=== PATIENT | male | born 1955 | race Caucasian/White ===

== ENCOUNTER → 2018-08-30 08:49 | Outpatient (CLI) | payer MEDICARE, OTHER, SELFPAY ==
--- NOTE | 2018-08-30 08:53 | US_ITS ---
STUDY: THYROID ULTRASOUND REASON FOR EXAM: Male, 63 years old. Thyroid enlargement TECHNIQUE: Ultrasound evaluation of the thyroid was performed with real-time and static lima-scale imaging. COMPARISON: None. FINDINGS: RIGHT LOBE: The right lobe of the thyroid gland measures 5.4 x 2.5 x 2.5 cm. There is a homogeneous echotexture. Solitary hypoechoic nodule in the right thyroid lobe measures 5 x 6 mm peripheral hypoechoic halo but no microcalcifications or vascular flow. Margins of the nodular smooth. LEFT LOBE: The left lobe of the thyroid gland measures 4.0 x 2.3 x 1.6 cm. There is a homogeneous echotexture. There are no demonstrated solid, cystic or complex lesions. ISTHMUS: The isthmus measures 5 mm. The regional lymph nodes are normal. US/Thyroid IMPRESSION: 1. Right larger than left thyromegaly. 2. Solitary 6 mm nodule in the right thyroid lobe. Follow-up ultrasound in 6-12 months recommended. Electronically Signed: Kapil Cabrera MD at 15:47 EDT , Service support ,
== END ==
PROVIDERS: Family Provider Family Medicine; PCP Family Medicine; Referring Provider Family Medicine; Visit Provider Family Medicine
DX: E01.0 Iodine-deficiency related diffuse (endemic) goiter (principal)
CPT/HCPCS: 76536

== ENCOUNTER → 2018-10-02 10:19 | Outpatient (CLI) | payer MEDICARE, OTHER, SELFPAY ==
[2018-10-02 12:00] LABS: Absolute Lymphocyte Count 1.42 X10^3/ul (0.83-4.51); Absolute Neutrophil Count 3.7 X10^3/uL (2.0-7.7); Basophil# 0.03 X10^3/uL; Basophil% 0.5 % (0-1); Eosinophil# 0.34 X10^3/uL; Eosinophils% 5.4 % (0-5); Hematocrit 54.7 % (40-54); Hemoglobin 17.3 g/dl (13.0-16.5); Lymphocyte # 1.42 X10^3/ul (4.0); Lymphocyte % 22.6 % (19-41); Mean Corp Hgb Conc 31.6 g/gl (32-36); Mean Corpuscular Hgb 29.6 pg (27.0-32.0); Mean Corpuscular Volume 93.5 fL (80-94); Mean Platelet Vol. 11.8 fl (6.2-12.0); Monocyte# 0.74 X10^3/uL; Monocyte% 11.8 % (0-10); Neutrophil # 3.74 X10^3/uL (2.7-7.7); Neutrophil % 59.5 % (47-70); Platelet Count 163 K/mm3 (150-450); RBC Distribution Width CV 14.1 % (11.6-14.6); RBC Distribution Width SD 47.9 fl (35.1-43.9); Red Blood Count 5.85 M/mm3 (4.6-6.2); White Blood Count 6.3 K/mm3 (4.4-11.0)
[2018-10-02 12:06] LABS: POSITIVE COUNT NO; POSITIVE DIFFERENTIAL NO; POSITIVE MORPHOLOGY NO
[2018-10-02 12:23] LABS: Vitamin B12 405 pg/mL (211-911); Vitamin D,25 Hydroxy 8.5 ng/mL (29.95-100.01)
[2018-10-02 12:29] LABS: ALB/GLOB Ratio 0.9 RATIO (0.9-2.4); AST(SGOT) 29 U/L (15-37); Alanine Aminotransfer ALT/SGPT 45 U/L (16-61); Albumin, Serum 3.5 g/dL (3.2-5.0); Alkaline Phosphatase 91 U/L (45-117); Anion Gap 10 (5-15); BUN 19 mg/dL (7-18); BUN/Creat Ratio 14.2 RATIO (10-20); Calcium,Total 8.9 mg/dL (8.5-10.1); Chloride 103 mmol/L (98-107); Cholesterol 133 mg/dL (200); Creatinine, Serum 1.34 mg/dL (0.70-1.30); EST Glomerular Filtration Rate 57 mL/min (>60); Est Glom Filt Rate - Afr Amer 69 mL/min (>60); Globulin 4.1 g/dL (2.2-4.2); Glucose 115 mg/dL (74-106); High Density Lipoprotein 46 mg/dL; Magnesium 1.9 mg/dL (1.6-2.6); Potassium 4.7 mmol/L (3.5-5.1); Protein, Total 7.6 g/dL (6.4-8.2); Sodium Level 141 mmol/L (136-145); T4 Free Direct 1.11 ng/dL (0.76-1.46); Thyroid Stim Hormone (TSH) 4.04 uIU/mL (0.358-3.74); Triglycerides 195 mg/dL; Uric Acid 4.3 mg/dL (3.5-7.2); Very Low Density Lipoprotein 39 mg/dL (5-40)
[2018-10-03 09:03] LABS: Ferritin 27 ng/mL (26-388); Iron 134 ug/dL (65-175); Iron Binding Capacity,Total 417 ug/dL (250-450); PERCENT IRON SATURATION 32.1 % (15.0-55.0)
[2018-10-04 08:18] LABS: Transferrin 350 mg/dL (200-370)
== END ==
PROVIDERS: Family Provider Family Medicine; PCP Family Medicine; Visit Provider Family Medicine
DX: I10 Essential (primary) hypertension (principal); D75.1 Secondary polycythemia; E01.0 Iodine-deficiency related diffuse (endemic) goiter; M10.9 Gout, unspecified; I48.91 Unspecified atrial fibrillation
CPT/HCPCS: 36415; 80053; 80061; 82306; 82607; 82728; 83036; 83540; 83550; 83735; 84439; 84443; 84466; 84550; 85025

== ENCOUNTER → 2018-10-05 13:37 | Outpatient (CLI) | payer MEDICARE, OTHER, SELFPAY ==
[2018-10-05 13:59] LABS: Absolute Lymphocyte Count 1.46 X10^3/ul (0.83-4.51); Absolute Neutrophil Count 3.8 X10^3/uL (2.0-7.7); Basophil# 0.03 X10^3/uL; Basophil% 0.5 % (0-1); Eosinophil# 0.32 X10^3/uL; Eosinophils% 5.2 % (0-5); Hematocrit 53.8 % (40-54); Hemoglobin 17.1 g/dl (13.0-16.5); Lymphocyte # 1.46 X10^3/ul (4.0); Lymphocyte % 23.8 % (19-41); Mean Corp Hgb Conc 31.8 g/gl (32-36); Mean Corpuscular Volume 94.4 fL (80-94); Mean Platelet Vol. 11.7 fl (6.2-12.0); Monocyte# 0.49 X10^3/uL; Neutrophil # 3.84 X10^3/uL (2.7-7.7); Neutrophil % 62.5 % (47-70); Platelet Count 166 K/mm3 (150-450); RBC Distribution Width CV 14.2 % (11.6-14.6); RBC Distribution Width SD 48.3 fl (35.1-43.9); White Blood Count 6.1 K/mm3 (4.4-11.0)
[2018-10-05 14:02] LABS: POSITIVE COUNT NO; POSITIVE DIFFERENTIAL NO; POSITIVE MORPHOLOGY NO
[2018-10-05 14:11] LABS: Anion Gap 10 (5-15); BUN 21 mg/dL (7-18); BUN/Creat Ratio 15.3 RATIO (10-20); Calcium,Total 9.2 mg/dL (8.5-10.1); Chloride 102 mmol/L (98-107); Creatinine, Serum 1.37 mg/dL (0.70-1.30); EST Glomerular Filtration Rate 55 mL/min (>60); Est Glom Filt Rate - Afr Amer 67 mL/min (>60); Glucose 113 mg/dL (74-106); Potassium 4.3 mmol/L (3.5-5.1); Sodium Level 139 mmol/L (136-145)
[2018-10-08 17:08] LABS: Anti-Thyroglobulin AB < 1.0 IU/mL (0.0-0.9); Thyroid Peroxidase AB 7 IU/mL (0-34)
[2018-10-08 17:09] LABS: Thyroglobulin, Serum Qt. 20.6 ng/mL (1.4-29.2)
== END ==
PROVIDERS: PCP Family Medicine; Visit Provider Family Medicine
DX: R94.4 Abnormal results of kidney function studies (principal); E03.9 Hypothyroidism, unspecified; D75.1 Secondary polycythemia
CPT/HCPCS: 36415; 80048; 84432; 85025; 86376; 86800

== ENCOUNTER → 2019-01-08 11:21 | Outpatient (CLI) | payer MEDICARE, OTHER, SELFPAY ==
[2019-01-08 14:04] LABS: Basophil# 0.03 X10^3/uL; Basophil% 0.4 % (0-1); Eosinophil# 0.47 X10^3/uL; Eosinophils% 6.6 % (0-5); Hematocrit 55.5 % (40-54); Hemoglobin 17.7 g/dl (13.0-16.5); Lymphocyte % 26.5 % (19-41); Mean Corp Hgb Conc 31.9 g/gl (32-36); Mean Corpuscular Hgb 29.6 pg (27.0-32.0); Mean Corpuscular Volume 92.8 fL (80-94); Mean Platelet Vol. 11.2 fl (6.2-12.0); Monocyte# 0.78 X10^3/uL; Monocyte% 10.9 % (0-10); Neutrophil # 3.97 X10^3/uL (2.7-7.7); Neutrophil % 55.5 % (47-70); Platelet Count 163 K/mm3 (150-450); RBC Distribution Width CV 14.8 % (11.6-14.6); RBC Distribution Width SD 49.8 fl (35.1-43.9); Red Blood Count 5.98 M/mm3 (4.6-6.2); White Blood Count 7.2 K/mm3 (4.4-11.0)
[2019-01-08 14:05] LABS: POSITIVE COUNT NO; POSITIVE DIFFERENTIAL NO; POSITIVE MORPHOLOGY NO
[2019-01-08 14:22] LABS: Hemoglobin A1c 6.2 % (4.2-6.3)
[2019-01-08 14:25] LABS: ALB/GLOB Ratio 0.8 RATIO (0.9-2.4); AST(SGOT) 26 U/L (15-37); Alanine Aminotransfer ALT/SGPT 39 U/L (16-61); Albumin, Serum 3.5 g/dL (3.2-5.0); Alkaline Phosphatase 86 U/L (45-117); Anion Gap 10 (5-15); BUN 22 mg/dL (7-18); BUN/Creat Ratio 18.3 RATIO (10-20); Calcium,Total 8.8 mg/dL (8.5-10.1); Chloride 105 mmol/L (98-107); Cholesterol 147 mg/dL (200); EST Glomerular Filtration Rate 64 mL/min (>60); Est Glom Filt Rate - Afr Amer 78 mL/min (>60); Globulin 4.2 g/dL (2.2-4.2); Glucose 115 mg/dL (74-106); High Density Lipoprotein 41 mg/dL; Potassium 4.2 mmol/L (3.5-5.1); Protein, Total 7.7 g/dL (6.4-8.2); Sodium Level 138 mmol/L (136-145); T4 Free Direct 1.07 ng/dL (0.76-1.46); Triglycerides 219 mg/dL; Very Low Density Lipoprotein 44 mg/dL (5-40)
[2019-01-08 14:28] LABS: Vitamin D,25 Hydroxy 17.6 ng/mL (29.95-100.01)
[2019-01-09 09:43] LABS: Ferritin 42 ng/mL (26-388); Iron 138 ug/dL (65-175); Iron Binding Capacity,Total 395 ug/dL (250-450); PERCENT IRON SATURATION 34.9 % (15.0-55.0)
[2019-01-10 08:17] LABS: Transferrin 302 mg/dL (200-370)
== END ==
PROVIDERS: PCP Family Medicine; Visit Provider Family Medicine
DX: R73.02 Impaired glucose tolerance (oral) (principal); E03.9 Hypothyroidism, unspecified; E78.5 Hyperlipidemia, unspecified; I10 Essential (primary) hypertension; E55.9 Vitamin D deficiency, unspecified; D75.1 Secondary polycythemia
CPT/HCPCS: 36415; 80053; 80061; 82306; 82728; 83036; 83540; 83550; 84439; 84443; 84466; 85025

== ENCOUNTER → 2019-05-10 08:04 | Outpatient (CLI) | payer MEDICARE, OTHER, SELFPAY ==
[2019-05-10 10:18] LABS: Absolute Lymphocyte Count 1.77 X10^3/ul (0.83-4.51); Absolute Neutrophil Count 3.7 X10^3/uL (2.0-7.7); Basophil# 0.03 X10^3/uL; Basophil% 0.4 % (0-1); Eosinophil# 0.49 X10^3/uL; Eosinophils% 7.3 % (0-5); Hematocrit 52.9 % (40-54); Hemoglobin 17.2 g/dl (13.0-16.5); Lymphocyte # 1.77 X10^3/ul (4.0); Lymphocyte % 26.5 % (19-41); Mean Corp Hgb Conc 32.5 g/gl (32-36); Mean Corpuscular Hgb 29.5 pg (27.0-32.0); Mean Corpuscular Volume 90.6 fL (80-94); Mean Platelet Vol. 11.1 fl (6.2-12.0); Monocyte# 0.68 X10^3/uL; Monocyte% 10.2 % (0-10); Neutrophil % 55.5 % (47-70); Platelet Count 160 K/mm3 (150-450); RBC Distribution Width CV 14.2 % (11.6-14.6); Red Blood Count 5.84 M/mm3 (4.6-6.2); White Blood Count 6.7 K/mm3 (4.4-11.0)
[2019-05-10 10:21] LABS: POSITIVE COUNT NO; POSITIVE DIFFERENTIAL NO; POSITIVE MORPHOLOGY NO
[2019-05-10 10:36] LABS: Hemoglobin A1c 6.2 % (4.2-6.3)
[2019-05-10 10:43] LABS: ALB/GLOB Ratio 0.9 RATIO (0.9-2.4); AST(SGOT) 26 U/L (15-37); Alanine Aminotransfer ALT/SGPT 37 U/L (16-61); Albumin, Serum 3.5 g/dL (3.2-5.0); Alkaline Phosphatase 83 U/L (45-117); Anion Gap 7 (5-15); BUN 17 mg/dL (7-18); BUN/Creat Ratio 14.4 RATIO (10-20); Bilirubin, Direct 0.16 mg/dL (0.00-0.30); Calcium,Total 9.4 mg/dL (8.5-10.1); Chloride 104 mmol/L (98-107); Creatinine, Serum 1.18 mg/dL (0.70-1.30); EST Glomerular Filtration Rate 66 mL/min (>60); Est Glom Filt Rate - Afr Amer 79 mL/min (>60); Glucose 116 mg/dL (74-106); Potassium 3.9 mmol/L (3.5-5.1); Protein, Total 7.5 g/dL (6.4-8.2); Sodium Level 136 mmol/L (136-145); T4 Free Direct 1.21 ng/dL (0.76-1.46); Thyroid Stim Hormone (TSH) 2.68 uIU/mL (0.358-3.74)
[2019-05-10 11:10] LABS: Vitamin D,25 Hydroxy 27.1 ng/mL (29.95-100.01)
== END ==
PROVIDERS: Family Provider Family Medicine; PCP Family Medicine; Referring Provider Family Medicine; Visit Provider Family Medicine
DX: E55.9 Vitamin D deficiency, unspecified (principal); D75.1 Secondary polycythemia; I10 Essential (primary) hypertension; E03.9 Hypothyroidism, unspecified; R73.02 Impaired glucose tolerance (oral); Z79.899 Other long term (current) drug therapy
CPT/HCPCS: 36415; 80053; 82248; 82306; 83036; 84439; 84443; 85025

== ENCOUNTER → 2019-05-14 10:05 | Outpatient (CLI) | payer MEDICARE, OTHER, SELFPAY ==
[2019-05-14 13:11] LABS: CPK Total, Creatine Kinase 86 U/L (39-308); Ferritin 23 ng/mL (26-388); Magnesium 1.9 mg/dL (1.6-2.6)
== END ==
PROVIDERS: Family Provider Family Medicine; PCP Family Medicine; Visit Provider Family Medicine
DX: R25.2 Cramp and spasm (principal)
CPT/HCPCS: 36415; 82550; 82728; 83735

== ENCOUNTER → 2019-06-20 10:11 | Outpatient (CLI) | payer MEDICARE, OTHER, SELFPAY ==
[2019-06-20 14:23] LABS: PSA,Total - Annual Screen 1.04 ng/mL (0.00-4.00)
== END ==
PROVIDERS: Family Provider Family Medicine; PCP Family Medicine; Referring Provider Family Medicine; Visit Provider Family Medicine
DX: Z12.5 Encounter for screening for malignant neoplasm of prostate (principal)
CPT/HCPCS: 36415; 84153; G0103

== ENCOUNTER → 2019-10-30 08:11 | Outpatient (CLI) | payer MEDICARE, OTHER, SELFPAY ==
[2019-10-30 10:02] LABS: Absolute Neutrophil Count 3.8 X10^3/uL (2.0-7.7); Basophil# 0.05 X10^3/uL; Basophil% 0.7 % (0-1); Eosinophils% 5.9 % (0-5); Hematocrit 55.1 % (40-54); Hemoglobin 17.5 g/dL (13.0-16.5); Lymphocyte % 26.4 % (19-41); Mean Corp Hgb Conc 31.8 g/dL (32-36); Mean Corpuscular Hgb 28.8 pg (27.0-32.0); Mean Corpuscular Volume 90.6 fL (80-94); Mean Platelet Vol. 11.1 fl (6.2-12.0); Monocyte# 0.71 X10^3/uL; Monocyte% 10.4 % (0-10); NRBC Flagged by Analyzer 0 % (0-5); Neutrophil # 3.84 X10^3/uL (2.7-7.7); Neutrophil % 56.3 % (47-70); Platelet Count 180 K/mm3 (150-450); RBC Distribution Width CV 14.2 % (11.6-14.6); RBC Distribution Width SD 46.5 fl (35.1-43.9); Red Blood Count 6.08 M/mm3 (4.6-6.2); White Blood Count 6.8 K/mm3 (4.4-11.0)
[2019-10-30 10:13] LABS: Hemoglobin A1c 6.1 % (4.2-6.3)
[2019-10-30 10:19] LABS: Vitamin D,25 Hydroxy 11.9 ng/mL (29.95-100.01)
[2019-10-30 10:40] LABS: ALB/GLOB Ratio 0.9 RATIO (0.9-2.4); AST(SGOT) 26 U/L (15-37); Alanine Aminotransfer ALT/SGPT 36 U/L (16-61); Albumin, Serum 3.5 g/dL (3.2-5.0); Alkaline Phosphatase 79 U/L (45-117); Anion Gap 10 (5-15); BUN 24 mg/dL (7-18); BUN/Creat Ratio 18.3 RATIO (10-20); Calcium,Total 8.9 mg/dL (8.5-10.1); Chloride 106 mmol/L (98-107); Cholesterol 155 mg/dL (200); Creatinine, Serum 1.31 mg/dL (0.70-1.30); EST Glomerular Filtration Rate 58 mL/min (>60); Est Glom Filt Rate - Afr Amer 70 mL/min (>60); Globulin 4.1 g/dL (2.2-4.2); Glucose 112 mg/dL (74-106); High Density Lipoprotein 40 mg/dL; Potassium 4.3 mmol/L (3.5-5.1); Protein, Total 7.6 g/dL (6.4-8.2); Sodium Level 138 mmol/L (136-145); T4 Free Direct 1.07 ng/dL (0.76-1.46); Thyroid Stim Hormone (TSH) 8.37 uIU/mL (0.358-3.74); Triglycerides 275 mg/dL; Uric Acid 4.8 mg/dL (3.5-7.2); Very Low Density Lipoprotein 55 mg/dL (5-40)
[2019-10-31 15:39] LABS: Anti-Thyroglobulin AB < 1.0 IU/mL (0.0-0.9); Thyroglobulin, Serum Qt. 11.7 ng/mL (1.4-29.2); Thyroid Peroxidase AB 7 IU/mL (0-34)
== END ==
PROVIDERS: Family Provider Family Medicine; PCP Family Medicine; Referring Provider Family Medicine; Visit Provider Family Medicine
DX: E55.9 Vitamin D deficiency, unspecified (principal); E78.5 Hyperlipidemia, unspecified; R73.02 Impaired glucose tolerance (oral); M10.9 Gout, unspecified; N18.3 Chronic kidney disease, stage 3 (moderate); Z12.5 Encounter for screening for malignant neoplasm of prostate; E03.9 Hypothyroidism, unspecified
CPT/HCPCS: 36415; 80053; 80061; 82306; 83036; 84432; 84439; 84443; 84550; 85025; 86376; 86800

== ENCOUNTER → 2019-11-14 09:08 | Outpatient (CLI) | payer MEDICARE, OTHER, SELFPAY ==
--- NOTE | 2019-11-14 09:12 | US_ITS ---
STUDY: THYROID ULTRASOUND REASON FOR EXAM: Male, 64 years old. thyroid nodule TECHNIQUE: Ultrasound evaluation of the thyroid was performed with real-time and static lima-scale imaging. COMPARISON: 08/30/2018 FINDINGS: RIGHT LOBE: The right lobe of the thyroid gland measures 5.0 x 2.1 x 2.0 cm. There is a homogeneous echotexture. No change in the 5 mm hypoechoic nodule in the right lobe consistent with an adenoma. LEFT LOBE: The left lobe of the thyroid gland measures 4.0 x 1.5 x 1.4 cm. There is a homogeneous echotexture. There are no demonstrated solid, cystic or complex lesions. ISTHMUS: The isthmus measures 3 mm thick. . The regional lymph nodes are normal. US/Thyroid IMPRESSION: No change in 5 mm adenoma the right lobe. Electronically Signed: Chung Arechiga MD at 12:08 EST Tel , Service support ,
== END ==
PROVIDERS: Family Provider Family Medicine; PCP Family Medicine; Referring Provider Family Medicine; Visit Provider Family Medicine
DX: E04.1 Nontoxic single thyroid nodule (principal)
CPT/HCPCS: 76536

== ENCOUNTER 2019-12-27 12:06 | Emergency (ER) | payer MEDICARE, OTHER, SELFPAY ==
[2019-12-27 12:08] VITALS: BP 128/82; PULSE 82; RESP 17; TEMP 36.7; O2SAT 92; BMI 39.1
--- NOTE | 2019-12-27 12:42 | ED.VIS.GEN ---
History of Present Illness Chief Complaint: Cellulitis Informant: Patient Onset: Days Context: Gradual Onset Timing: Continuous Current Severity: Moderate Maximum Severity: Moderate Narrative: The patient is a [id number] male who presents to the emergency department with left thumb infection. Patient states that he began to have some pain on Monday. He states that he has a history of gout and thought that it may be the same. He took prednisone for day which really did not seem to help it. He states when he woke this morning, he noticed there was a large area of redness on the lateral aspect of his nail base. He denies any fevers or chills. He has no history of immunosuppression. He states he was just concerned given the swelling and wanted to be evaluated. Prior similar symptoms: No Recent Illness/Hospitalization: No Past Medical History Primary Care Physician: Alexx David MD [Primary Care Provider] - Prior records reviewed: Yes Past Medical History: - - Coronary vascular disease status post pacemaker placement Surgical History: noncontributory Review of Systems General: Denies: Chills, Fever, Sweats Eyes: Denies: Visual changes - bilaterally, Diplopia ENT: Denies: Rhinorrhea, Sore throat Cardiovascular: Denies: Chest pain, Palpitations Respiratory: Denies: Dyspnea, Cough, Dyspnea on exertion Gastrointestinal: Denies: Abdominal pain, Nausea, Vomiting, Diarrhea, Melena, Hematochezia Genitourinary: Denies: Dysuria, Hematuria, Frequency Musculoskeletal: Denies: Back pain, Extremity Pain Skin: Denies: Rash, Wounds Neurological: Denies: Headache, Weakness, Numbness Physical Exam Vital Signs/Narrative: Vital Signs Temp Pulse Resp BP Pulse Ox 12/27/19 12:08 98.1 F 82 17 128/82 H 92 Inital Vital Signs reviewed: Yes General: Well nourished, Well developed, No Acute Distress Head: Normocephalic, Atraumatic Eyes: Perrl, EOMI ENT: Moist mucous membranes, No rhinorrhea Neck: Supple, Nontender Cardiovascular: Regular rate, Regular rhythm, No murmurs Respiratory: No distress, CTA bilaterally, Chest nontender Abdomen: Soft, Nontender, Nondistended, Normal bowel sounds Back: Nontender, Normal Inspection Extremities: No edema, Tenderness - Patient has tenderness over the medial aspect of the left nailbed of the first digit. There is no evidence of felon. He has normal cap refill. There is no tenderness in the tip of the finger. He does have a fluctuant area in the medial eponychial fold consistent with paronychia. Skin: Normal color, No rash Neurological: Alert, Oriented x3, Cranial nerves II-XII grossly intact, Normal Strength, Normal Sensation Psychological: Normal affect, Normal Mood Diagnostic/Tx/Re-eval - Medical Decision Making The patient has evidence of paronychia of the left thumb. There is no cellulitis or streaking. The patient was consented for incision and drainage. Digital block was done with bupivacaine under sterile conditions. Once anesthesia was achieved, a small incision was made with 11 blade over the point of maximum fluctuance. Approximately 4 cc of purulent material was able to be removed. The patient tolerated this well. His wound was cleaned and dressed. He will be placed on doxycycline. He was counseled on concerning symptoms and reasons to return. I also counseled him that if this is not improving or worsening in any way over the next 24 to 48 hours to return to the emergency department. Impression 1. Paronychia left thumb ED Disposition - Plan for ED Patient: Instructions: Paronychia Prescriptions: Doxycycline 100 mg PO BID #20 cap Prescription Printed Referrals: Alexx David MD [Primary Care Provider] -
[2019-12-27 13:59] VITALS: BP 128/82; PULSE 82; RESP 17; TEMP 36.7; O2SAT 92
[2019-12-27] MEDS: Bupivacaine Mpf 0.5% 30 ML VIAL INFILT (14:02)
== END 2019-12-27 14:29 | disposition home or self-care (01) ==
LOC: ED 13:02
PROVIDERS: Emergency Provider Emergency Medicine; PCP Family Medicine
DX: L03.012 Cellulitis of left finger (principal); M10.9 Gout, unspecified; Z95.0 Presence of cardiac pacemaker
CPT/HCPCS: 10060; 99284

== ENCOUNTER 2020-02-06 08:23 | Day surgery (SDC) | payer MEDICARE, OTHER, SELFPAY ==
[2020-01-22 14:24] VITALS: BMI 38.7
[2020-01-27 09:20] LABS: Bacteria 0 SEEN /hpf (None Seen); Mucous, Urine 0 SEEN /hpf (<or=2+); Red Blood Cells-Urine 0 SEEN /hpf (0-5); Squamous Epithelial Cells - UA 0 SEEN /hpf (0-5)
[2020-01-27 10:07] LABS: Hematocrit 53.1 % (40-54); Hemoglobin 16.9 g/dL (13.0-16.5); Mean Corp Hgb Conc 31.8 g/dL (32-36); Mean Corpuscular Hgb 28.7 pg (27.0-32.0); Mean Corpuscular Volume 90.2 fL (80-94); Mean Platelet Vol. 10.5 fl (6.2-12.0); Platelet Count 193 K/mm3 (150-450); RBC Distribution Width CV 14.2 % (11.6-14.6); RBC Distribution Width SD 46.6 fl (35.1-43.9); Red Blood Count 5.89 M/mm3 (4.6-6.2); White Blood Count 6.7 K/mm3 (4.4-11.0)
[2020-01-27 10:23] LABS: International Normalized Ratio 1.2; Prothrombin Time (Protime)PT. 14.5 SECONDS (11.7-14.9)
[2020-01-27 10:48] LABS: Anion Gap 5 (5-15); BUN 22 mg/dL (7-18); BUN/Creat Ratio 18.2 RATIO (10-20); Calcium,Total 9.1 mg/dL (8.5-10.1); Chloride 106 mmol/L (98-107); Creatinine, Serum 1.21 mg/dL (0.70-1.30); EST Glomerular Filtration Rate 64 mL/min (>60); Est Glom Filt Rate - Afr Amer 77 mL/min (>60); Glucose 129 mg/dL (74-106); Potassium 4.1 mmol/L (3.5-5.1); Sodium Level 138 mmol/L (136-145)
[2020-01-27 17:07] LABS: Color, Urine Yellow (Yellow); Glucose, Dipstick Normal (Normal); Ketone-Dipstick Negative (Negative); Leukocyte Esterase-Dipstick 25 /ul (Negative); Nitrite-Dipstick Negative (Negative); Occult Blood-Urine Negative /ul (Negative); Protein-Dipstick Negative (Negative); Specific Gravity, Urine 1.015 (1.002-1.030); Urine Bilirubin Dipstick Negative (Negative); Urine Clarity Clear (Clear); Urine Urobilinogen Normal (Normal)
[2020-01-27 17:27] LABS: White Blood Cells 0-5 SEEN /hpf (0-5)
[2020-02-05 07:23] VITALS: BMI 38.7
--- NOTE | 2020-02-06 09:03 | PCM.HP.BLA ---
History and Physical Date of Admission: 02/06/20 History of Present Illness This is a 64-year-old man with a history of CAD with remote stenting, ischemic cardiomyopathy with an EF of 15%. In 2014 he had presented with a left bundle branch block, class II-III heart failure and ejection fraction less than 30%. A biventricular implantable cardioverter defibrillator was placed with a Medtronic REFRIGERATED CARGO CLERK-D model DTPA 1 q. q. serial number [id number]. His ICD has reached [facility]. He recently transferred care to our practice. He has been following up in [place] but due to logistics he would want to follow here. In addition his defibrillator is at end-of-life. From a cardiac standpoint, patient is doing well. He does not have any chest discomfort/heaviness/tightness. His exercise tolerance is stable for his age. He does not have any worsening symptoms of shortness of breath. He denies any PND. He does not have any orthopnea. He does not have any symptoms of congestive heart failure. He does not have any palpitations that he is aware of. He does not have any lightheadedness or dizziness. He does not have any near-syncope or syncope. He does not have any lower extremity edema. He does not have any symptoms of claudication. Intake VS: see chart Allergies losartan [From Cozaar] Allergy (Verified 01/22/20 14:24) Other niacin Allergy (Verified 01/22/20 14:24) Hives sacubitril [From Entresto] Allergy (Verified 01/22/20 14:24) Other valsartan [From Entresto] Allergy (Verified 01/22/20 14:24) Other Medications Amiodarone HCl 200 mg PO DAILY 12/27/19 [History Confirmed 01/22/20] Aspirin [Aspir 81] 81 mg PO DAILY 12/27/19 [History Confirmed 01/22/20] Clopidogrel Bisulfate [Plavix] 75 mg PO DAILY 12/27/19 [History Confirmed 01/22/20] Losartan Potassium [Cozaar] 50 mg PO BID 12/27/19 [History Confirmed 01/22/20] Spironolactone 12.5 mg PO DAILY 12/27/19 [History Confirmed 01/22/20] atorvastatin 40 mg tablet 80 mg PO DAILY tab 01/22/20 [History Confirmed 01/22/20] coenzyme Q10 10 mg capsule 10 mg PO ONCE 01/22/20 [History Confirmed 01/22/20] metoprolol succinate 50 mg tablet,extended release 24 hr 50 mg PO DAILY 01/22/20 [History Confirmed 01/22/20] [facility] Medical History LBBB (left bundle branch block) (Chronic) Essential (primary) hypertension (Chronic) HLD (hyperlipidemia) (Chronic) COPD (chronic obstructive pulmonary disease) (Chronic) Coronary artery disease (Chronic) Congestive heart failure (CHF) (Chronic) Surgical History History of appendectomy (Resolved) H/O coronary angioplasty (Resolved) Biventricular ICD (implantable cardioverter-defibrillator) in place (Chronic) Family History Mother Heart disease Diabetes Father Heart disease Social History (Updated 01/22/20 @ 14:[address] Jose Schmidt MD) Smoking Status: Never smoker ROS Const Const: Negative for fatigue, weakness, headache(s), frequent falls, night sweats, daytime sleepiness or excessive sweating Eyes Eyes: Negative for blind spots, loss of peripheral vision, transient loss of vision, blurry vision or double vision ENT ENT: Negative for headache(s), dizziness, Nosebleed/epistaxis, balance problems, lip swelling or tongue swelling Cardio Chest Pain: No Palpitations: No Edema: None Muscle aches with walking: None Resp Respiratory: Negative for SOB with activity, SOB at rest, SOB orthopnea\SOB lying down, Cough or paroxysmal nocturnal dyspnea GI GI: Negative nausea, vomiting, heartburn, bright, red blood in stools or black,tarry stools : Negative for hematuria Musc Musc: Negative for muscle aches/ myalgia, muscle weakness, joint pain or balance problems Skin Skin: Negative non-healing lesions, rash or unusual bruising Neuro Neuro: Negative for dizziness, lightheadedness, orthostatic symptoms, frequent falls, headache(s), weakness, blurry vision, double vision or lack of coordination Jermain Hematologic/Lymphatic: Negative for easy bleeding or easy bruising Endo Endo: Negative for fatigue, cold intolerance, heat intolerance, excessive sweating, increased thirst/drinking or hair loss Psych Psych: Negative for anxiety or depression Allergy Allergy/Immunology: Negative for throat swelling, Negative for tongue swelling, Negative for hives, Negative for rash, Negative for lip swelling Cardiology Exam Const Appearance: cooperative, healthy appearing, no acute distress, well developed and well groomed Nutritional Appearance: average body habitus and well nourished Orientation: alert, awake and oriented x3 Head Head: normal to inspection, normocephalic and atraumatic Ears: hearing grossly normal bilaterally and external ears normal Nose: external nose normal, nares normal, nasal mucous membranes and turbinates normal, septum normal, no nasal discharge Face and Sinus: face symmetric Mouth: oral mucosae normal, tongue normal, oropharynx normal and moist mucous membranes Teeth and gingiva: dentition normal Throat: posterior oropharynx normal, tonsils normal and uvula midline Eyes General: appearance normal, both eyes and all related structures Eyelids: eyelids normal Conjunctivae: conjunctivae normal Pupils: PERRL, normal by confrontation and accommodation normal EOM: EOM intact bilaterally Neck Neck: normal visual inspection, trachea midline and no JVD JVD: +5 Carotids: normal carotid upstroke and bounding pulses Chest Chest inspection: normal inspection of the chest, symmetric chest movement and normal respiratory effort Auscultation: Bilateral: Clear to Auscultation Cardio Palpation: normal PMI Rate: regular rate Rhythm: regular rhythm Heart sounds: S1 normal, S2 normal and normal, physiologic split S2; negative rub, gallop or murmur GI GI: normal to inspection, soft, no hepatosplenomegaly and bowel sounds present Neuro General: alert, awake, oriented x3, gait normal, moves all extremities and no focal sensory deficit Skin Skin: no rashes or lesions noted Extremities Pulses: Normal: Right Femoral Pulse, Left Femoral Pulse, Right Dorsalis Pedis Pulse, Left Dorsalis Pedis Pulse, Right Posterior Tibial Pulse, Left Posterior Tibial Pulse, Right Radial Pulse, Left Radial Pulse Lower Extremity Edema: None: Bilateral Musculoskel Musculoskeletal: No joint tenderness Psych Psychological: normal affect Assessment & Plan 1. Biventricular ICD (implantable cardioverter-defibrillator) in place Z95.810 Plan He is status post biventricular ICD implantation. His battery is at end-of-life replacement index. He will undergo replacement of this today He will follow up in the office accordingly. Echocardiogram in 2017 demonstrated an EF of 15%. 2. Essential (primary) hypertension I10 Plan He does have a history of hypertension which is well-controlled on the current medical therapy he is on losartan, metoprolol, spironolactone. This will be continued without any change. 3. Coronary artery disease I25.10 Plan He does have previous coronary artery disease. He will continue with aggressive medical management. 4. HLD (hyperlipidemia) E78.5 Plan He does have a history of hyperlipidemia his most recent lipid profile demonstrating a total cholesterol 155, LDL of 60, HDL of 40, triglycerides of 275. He will continue with aggressive risk factor modification.
--- NOTE | 2020-02-06 10:51 | OP.PCM_ITS ---
Report of Operation Date of Procedure: 02/06/20 Description of Procedure: Preoperative diagnosis is device at end of life for normal battery depletion. Postoperative diagnosis same as above. After informed consent and IV antibiotics the patient was brought to the [place] catheterization laboratory and the skin over the device was prepped and draped in the usual sterile manner. Intermittent boluses of Versed, and fentanyl were used for sedation and analgesia as well as 1% subcutaneous lidocaine. An incision was made over the pre-existing device. Using blunt and Bovie dissection the pocket was opened and the device was removed. Careful attention was paid not to injure the pre-existing leads. The leads were removed from the device header and they were interrogated. There is normal lead function. Hemostasis was obtained. The pocket was flushed with antibiotic solution. The sponge and needle count were correct. The new device was brought to the field. The leads were placed in the appropriate position in the header and secured by the set screw. The leads and the device were then placed in the pocket. The pocket was closed with a deep layer of running 2-0 Vicryl, a superficial layer of running 4-0 Vicryl, skin with Steri-Strips which were covered with a rolled 4 x 4 and Tegaderm. Patient left the room with the device programmed to proper parameters and there were no complications. The device is a Medtronic BiV ICD with 2 epicardial LVleads with aconnector for epicardial bipolar pacing options. All lead parameters were tested and found to be functionally normal. Lead and device serial and model numbers are available in the chart documents provided by the device company sales representative sales manager procedure summary.
== END 2020-02-06 13:00 | disposition home or self-care (01) ==
LOC: CLSP 08:24
PROVIDERS: Internal Medicine Cardiovascular Disease; PCP Family Medicine; Referring Provider Internal Medicine Cardiovascular Disease; Visit Provider Internal Medicine Cardiovascular Disease
DX: Z45.02 Encounter for adjustment and management of automatic implantable cardiac defibrillator (principal); E78.5 Hyperlipidemia, unspecified; I11.0 Hypertensive heart disease with heart failure; I25.10 Atherosclerotic heart disease of native coronary artery without angina pectoris; I25.5 Ischemic cardiomyopathy; I50.9 Heart failure, unspecified; I44.7 Left bundle-branch block, unspecified; Z79.82 Long term (current) use of aspirin
CPT/HCPCS: 33249; 33264; 36415; 80048; 81001; 85027; 85610; 93641; 99152; 99153; J7040; J7050

== ENCOUNTER → 2020-03-06 08:10 | Outpatient (CLI) | payer MEDICARE, OTHER, SELFPAY ==
[2020-02-05 07:23] VITALS: BMI 38.7
[2020-03-06 09:55] LABS: Absolute Lymphocyte Count 1.84 X10^3/uL (0.83-4.51); Absolute Neutrophil Count 3.2 X10^3/uL (2.0-7.7); Basophil# 0.05 X10^3/uL; Basophil% 0.8 % (0-1); Eosinophil# 0.45 X10^3/uL; Eosinophils% 7.3 % (0-5); Hematocrit 53.2 % (40-54); Hemoglobin 17.1 g/dL (13.0-16.5); Lymphocyte # 1.84 X10^3/ul (4.0); Mean Corp Hgb Conc 32.1 g/dL (32-36); Mean Corpuscular Volume 90.3 fL (80-94); Mean Platelet Vol. 10.8 fl (6.2-12.0); Monocyte# 0.55 X10^3/uL; NRBC Flagged by Analyzer 0 % (0-5); Neutrophil # 3.23 X10^3/uL (2.7-7.7); Neutrophil % 52.7 % (47-70); Platelet Count 182 K/mm3 (150-450); RBC Distribution Width SD 46.5 fl (35.1-43.9); Red Blood Count 5.89 M/mm3 (4.6-6.2); White Blood Count 6.1 K/mm3 (4.4-11.0)
[2020-03-06 10:14] LABS: ALB/GLOB Ratio 0.9 RATIO (0.9-2.4); AST(SGOT) 22 U/L (15-37); Alanine Aminotransfer ALT/SGPT 31 U/L (16-61); Albumin, Serum 3.4 g/dL (3.2-5.0); Alkaline Phosphatase 81 U/L (45-117); Anion Gap 8 (5-15); BUN 19 mg/dL (7-18); BUN/Creat Ratio 16.5 RATIO (10-20); Calcium,Total 8.8 mg/dL (8.5-10.1); Chloride 106 mmol/L (98-107); Cholesterol 158 mg/dL (200); Creatinine, Serum 1.15 mg/dL (0.70-1.30); EST Glomerular Filtration Rate 67 mL/min (>60); Est Glom Filt Rate - Afr Amer 82 mL/min (>60); Ferritin 35 ng/mL (26-388); Globulin 3.8 g/dL (2.2-4.2); Glucose 135 mg/dL (74-106); High Density Lipoprotein 45 mg/dL; Iron 117 ug/dL (65-175); Iron Binding Capacity,Total 404 ug/dL (250-450); Potassium 4.1 mmol/L (3.5-5.1); Protein, Total 7.2 g/dL (6.4-8.2); Sodium Level 138 mmol/L (136-145); Triglycerides 179 mg/dL; Very Low Density Lipoprotein 36 mg/dL (5-40)
[2020-03-06 10:27] LABS: Iron 118 ug/dL (65-175); Iron Binding Capacity,Total 410 ug/dL (250-450); PERCENT IRON SATURATION 28.8 % (15.0-55.0); T4 Free Direct 0.99 ng/dL (0.76-1.46); Thyroid Stim Hormone (TSH) 7.04 uIU/mL (0.358-3.74)
[2020-03-06 10:31] LABS: Hemoglobin A1c 6.1 % (4.2-6.3); Vitamin D,25 Hydroxy 37.2 ng/mL
[2020-03-07 08:30] LABS: Transferrin 281 mg/dL (177-329)
== END ==
PROVIDERS: PCP Family Medicine; Referring Provider Family Medicine; Visit Provider Family Medicine
DX: E03.9 Hypothyroidism, unspecified (principal); I10 Essential (primary) hypertension; R73.02 Impaired glucose tolerance (oral); N18.3 Chronic kidney disease, stage 3 (moderate); E55.9 Vitamin D deficiency, unspecified; E78.5 Hyperlipidemia, unspecified; D75.1 Secondary polycythemia; R79.0 Abnormal level of blood mineral
CPT/HCPCS: 36415; 80053; 80061; 82306; 82728; 83036; 83540; 83550; 84439; 84443; 84466; 85025

== ENCOUNTER → 2020-07-14 08:05 | Outpatient (CLI) | payer MEDICARE, OTHER, SELFPAY ==
[2020-02-05 07:23] VITALS: BMI 38.7
[2020-07-14 10:43] LABS: Absolute Neutrophil Count 3.9 X10^3/uL (2.0-7.7); Basophil# 0.05 X10^3/uL; Basophil% 0.7 % (0-1); Eosinophil# 0.45 X10^3/uL; Eosinophils% 6.4 % (0-5); Hematocrit 54.3 % (40-54); Hemoglobin 17.2 g/dL (13.0-16.5); Lymphocyte % 28.6 % (19-41); Mean Corp Hgb Conc 31.7 g/dL (32-36); Mean Corpuscular Hgb 29.1 pg (27.0-32.0); Mean Corpuscular Volume 91.9 fL (80-94); Mean Platelet Vol. 11.1 fl (6.2-12.0); Monocyte# 0.62 X10^3/uL; Monocyte% 8.9 % (0-10); NRBC Flagged by Analyzer 0 % (0-5); Neutrophil # 3.86 X10^3/uL (2.7-7.7); Neutrophil % 55.3 % (47-70); Platelet Count 203 K/mm3 (150-450); Red Blood Count 5.91 M/mm3 (4.6-6.2)
[2020-07-14 10:52] LABS: Vitamin D,25 Hydroxy 37.5 ng/mL
[2020-07-14 11:06] LABS: ALB/GLOB Ratio 0.9 RATIO (0.9-2.4); AST(SGOT) 21 U/L (15-37); Alanine Aminotransfer ALT/SGPT 27 U/L (16-61); Albumin, Serum 3.5 g/dL (3.2-5.0); Alkaline Phosphatase 77 U/L (45-117); Anion Gap 5 (5-15); BUN 19 mg/dL (7-18); BUN/Creat Ratio 15.8 RATIO (10-20); Calcium,Total 8.9 mg/dL (8.5-10.1); Chloride 104 mmol/L (98-107); Cholesterol 158 mg/dL (200); EST Glomerular Filtration Rate 64 mL/min (>60); Est Glom Filt Rate - Afr Amer 78 mL/min (>60); Globulin 4.1 g/dL (2.2-4.2); Glucose 120 mg/dL (74-106); High Density Lipoprotein 42 mg/dL; Protein, Total 7.6 g/dL (6.4-8.2); Sodium Level 137 mmol/L (136-145); T4 Free Direct 0.96 ng/dL (0.76-1.46); Thyroid Stim Hormone (TSH) 8.17 uIU/mL (0.358-3.74); Triglycerides 238 mg/dL; Very Low Density Lipoprotein 48 mg/dL (5-40)
[2020-07-14 11:10] LABS: Hemoglobin A1c 6.1 % (3.8-5.6)
== END ==
PROVIDERS: PCP Family Medicine; Referring Provider Family Medicine; Visit Provider Family Medicine
DX: E03.9 Hypothyroidism, unspecified (principal); D75.1 Secondary polycythemia; I10 Essential (primary) hypertension; R73.02 Impaired glucose tolerance (oral); E78.5 Hyperlipidemia, unspecified; E55.9 Vitamin D deficiency, unspecified
CPT/HCPCS: 36415; 80053; 80061; 82306; 82570; 83036; 84156; 84439; 84443; 85025

== ENCOUNTER → 2020-11-24 08:01 | Outpatient (CLI) | payer MEDICARE, OTHER, SELFPAY ==
[2020-07-24 08:35] VITALS: BMI 38.0
[2020-11-24 10:19] LABS: Absolute Lymphocyte Count 2.15 X10^3/uL (0.83-4.51); Absolute Neutrophil Count 3.6 X10^3/uL (2.0-7.7); Basophil# 0.06 X10^3/uL; Basophil% 0.9 % (0-1); Eosinophil# 0.54 X10^3/uL; Eosinophils% 7.7 % (0-5); Hematocrit 53.4 % (40-54); Hemoglobin 16.9 g/dL (13.0-16.5); Lymphocyte # 2.15 X10^3/ul (4.0); Lymphocyte % 30.8 % (19-41); Mean Corp Hgb Conc 31.6 g/dL (32-36); Mean Corpuscular Hgb 28.5 pg (27.0-32.0); Mean Corpuscular Volume 89.9 fL (80-94); Mean Platelet Vol. 11.2 fl (6.2-12.0); Monocyte# 0.66 X10^3/uL; Monocyte% 9.5 % (0-10); NRBC Flagged by Analyzer 0 % (0-5); Neutrophil # 3.55 X10^3/uL (2.7-7.7); Platelet Count 182 K/mm3 (150-450); RBC Distribution Width CV 13.4 % (11.6-14.6); RBC Distribution Width SD 44.6 fl (35.1-43.9); Red Blood Count 5.94 M/mm3 (4.6-6.2)
[2020-11-24 10:32] LABS: Vitamin D,25 Hydroxy 19.4 ng/mL
[2020-11-24 10:34] LABS: Hemoglobin A1c 6.1 % (3.8-5.6)
[2020-11-24 10:35] LABS: AST(SGOT) 15 U/L (15-37); Alanine Aminotransfer ALT/SGPT 29 U/L (16-61); Albumin, Serum 3.6 g/dL (3.2-5.0); Alkaline Phosphatase 81 U/L (45-117); Anion Gap 10 (5-15); BUN 19 mg/dL (7-18); BUN/Creat Ratio 17.4 RATIO (10-20); Chloride 105 mmol/L (98-107); Cholesterol 141 mg/dL (200); Creatinine, Serum 1.09 mg/dL (0.70-1.30); EST Glomerular Filtration Rate 72 mL/min (>60); Est Glom Filt Rate - Afr Amer 87 mL/min (>60); Ferritin 44 ng/mL (26-388); Globulin 3.7 g/dL (2.2-4.2); Glucose 140 mg/dL (74-106); High Density Lipoprotein 36 mg/dL; Iron 169 ug/dL (65-175); Iron Binding Capacity,Total 368 ug/dL (250-450); Potassium 3.9 mmol/L (3.5-5.1); Protein, Total 7.3 g/dL (6.4-8.2); Sodium Level 138 mmol/L (136-145); T4 Free Direct 0.96 ng/dL (0.76-1.46); Triglycerides 258 mg/dL; Very Low Density Lipoprotein 52 mg/dL (5-40)
[2020-11-25 08:36] LABS: Transferrin 285 mg/dL (177-329)
== END ==
PROVIDERS: PCP Family Medicine; Referring Provider Family Medicine; Visit Provider Family Medicine
DX: E78.5 Hyperlipidemia, unspecified (principal); R73.02 Impaired glucose tolerance (oral); E55.9 Vitamin D deficiency, unspecified; D75.1 Secondary polycythemia; N18.30 Chronic kidney disease, stage 3 unspecified; E03.9 Hypothyroidism, unspecified
CPT/HCPCS: 36415; 80053; 80061; 82306; 82728; 83036; 83540; 83550; 84439; 84443; 84466; 85025

== ENCOUNTER → 2020-12-03 08:46 | Outpatient (CLI) | payer MEDICARE, OTHER, SELFPAY ==
[2020-07-24 08:35] VITALS: BMI 38.0
--- NOTE | 2020-12-03 08:49 | US_ITS ---
STUDY: THYROID ULTRASOUND REASON FOR EXAM: Male, 65 years old. NODULE TECHNIQUE: Ultrasound evaluation of the thyroid was performed with real-time and static lima-scale imaging. COMPARISON: Comparison is made with prior examination dated 11/14/2019 and 08/30/2018. FINDINGS: RIGHT LOBE: The right lobe of the thyroid gland measures 4.8 cm x 2.2 cm x 1.9 cm. There is a homogeneous echotexture. There is a 6 mm x 7 mm x 5 mm hypoechoic solid nodule in the midportion of the right lobe. This is unchanged. LEFT LOBE: The left lobe of the thyroid gland measures 3.5 cm x 1.6 cm x 1.4 cm. There is a homogeneous echotexture. There are no demonstrated solid, cystic or complex lesions. ISTHMUS: The isthmus measures 4 mm. The regional lymph nodes are normal. US/Thyroid IMPRESSION: Stable 6 mm x 7 mm x 5 mm hypoechoic solid nodule in the midportion of the right lobe of the thyroid. Electronically Signed: Gopal Aguilar, at 11:05 EST , Service support ,
== END ==
PROVIDERS: PCP Family Medicine; Referring Provider Family Medicine; Visit Provider Family Medicine
DX: E04.1 Nontoxic single thyroid nodule (principal)
CPT/HCPCS: 76536

== ENCOUNTER 2021-01-28 10:06 | Outpatient (RCR) | payer MEDICARE, OTHER, SELFPAY ==
[2020-07-24 08:35] VITALS: BMI 38.0
[2021-01-28] MEDS: COVID-19 VACC, MRNA(PFIZER)/PF 30 MCG/0.3 ML SYRINGE IM (07:58)
[2021-02-18] MEDS: COVID-19 VACC, MRNA(PFIZER)/PF 30 MCG/0.3 ML SYRINGE IM (08:14)
== END 2021-04-27 23:59 ==
LOC: IMMUN 10:06
PROVIDERS: PCP Family Medicine; Visit Provider Family Medicine
DX: Z23 Encounter for immunization (principal)
CPT/HCPCS: 0001A; 0002A; 91300

== ENCOUNTER → 2021-03-03 12:53 | Outpatient (CLI) | payer MEDICARE, OTHER, SELFPAY ==
[2021-02-23 08:32] VITALS: BMI 38.2
--- NOTE | 2021-03-03 12:55 | ECHOCS_ITS ---
Version 2 Reason For Study: DYSPNEA/SOB Procedure This was a 2D Doppler, Color Flow transthoracic echocardiogram. The study was technically difficult. Exam performed in department. Left Ventricle Severely dilated left ventricle. The estimated ejection fraction is 25 %. Severe global left ventricular systolic dysfunction. Stage 1 diastolic dysfunction. There is severe global hypokinesis of the left ventricle. Right Ventricle Normal RV size. ICD or pacer leads identified within the right ventricle. Normal systolic function. Atria The left atrium is moderately enlarged. Normal right atrium. Mitral Valve Normal mitral valve. Tricuspid Valve Normal tricuspid valve. Mild (1+) tricuspid valve insufficiency. Pulmonary artery systolic pressure is 36 mmHg. Aortic Valve Trisinus/trileaflet aortic valve. Pulmonic Valve The pulmonic valve is not well visualized. Great Vessels Normal aortic root. The pulmonary artery is normal size. Normal inferior vena cava. Pericardium/Pleural No pericardial effusion. Medication 22 gauge I.V. with prn adaptor inserted into left arm. Diluted definity 6ml given slow IV push to enhance endocardial definition. MMode/2D Measurements & Calculations LVIDd: 8.3 cm IVSd: 0.98 cm Ao root diam: 3.3 cm LVIDs: 7.0 cm LVPWd: 0.96 cm RVDd: 3.5 cm FS: 16.1 % LAV(MOD-sp4): 87.6 ml LVAd ap4: 47.5 cm2 SV(MOD-sp4): 66.4 ml EDV(MOD-sp4): 207.7 ml EDV(sp4-el): 211.2 ml LVAs ap4: 36.2 cm2 ESV(MOD-sp4): 141.3 ml ESV(sp4-el): 144.5 ml EF(MOD-sp4): 32.0 % EF(sp4-el): 31.6 % SV(sp4-el): 66.6 ml LA A4 area: 26.0 cm2 LA dimension(2D): 4.6 cm RA A4 area: 13.0 cm2 Time Measurements MV dec time: 0.12 sec Doppler Measurements & Calculations MV E max robert: 58.3 cm/sec Lat Peak E' Robert: 9.4 cm/sec Med Peak E' Robert: 5.1 cm/sec MV A max robert: 74.7 cm/sec E/E' lat: 6.2 E/E' med: 11.5 MV E/A: 0.78 Ao V2 max: 106.2 cm/sec LV V1 max: 70.6 cm/sec PA V2 max: 81.6 cm/sec Ao max P.6 mmHg LV V1 max P.1 mmHg PI end-d robert: 166.2 cm/sec TR max robert: 280.6 cm/sec PI dec slope: 184.9 cm/sec2 TR max P.5 mmHg ECHO/Echo Complete W/ Contrast Interpretation Summary Severely dilated left ventricle. The estimated ejection fraction is 25 %. Severe global left ventricular systolic dysfunction. The left atrium is moderately enlarged. Stage 1 diastolic dysfunction. ICD or pacer leads identified within the right ventricle. Contrast injection was performed. Ordering Physician: Jose Schmidt Referring Physician: YESENIA MIXON Performed By: Adriana Osborne RDCS
== END ==
PROVIDERS: PCP Family Medicine; Referring Provider Internal Medicine Cardiovascular Disease; Visit Provider Internal Medicine Cardiovascular Disease
DX: R06.00 Dyspnea, unspecified (principal); R06.02 Shortness of breath
CPT/HCPCS: 93306; Q9957; A4216; C8929

== ENCOUNTER → 2021-03-18 08:04 | Outpatient (CLI) | payer MEDICARE, OTHER, SELFPAY ==
[2021-02-23 08:32] VITALS: BMI 38.2
[2021-03-18 09:53] LABS: Absolute Lymphocyte Count 2.05 X10^3/uL (0.83-4.51); Absolute Neutrophil Count 3.4 X10^3/uL (2.0-7.7); Basophil# 0.05 X10^3/uL; Basophil% 0.8 % (0-1); Eosinophil# 0.41 X10^3/uL; Eosinophils% 6.2 % (0-5); Hematocrit 54.3 % (40-54); Hemoglobin 16.8 g/dL (13.0-16.5); Lymphocyte # 2.05 X10^3/ul (0.83-4.51); Lymphocyte % 30.9 % (19-41); Mean Corp Hgb Conc 30.9 g/dL (32-36); Mean Corpuscular Hgb 28.2 pg (27.0-32.0); Mean Corpuscular Volume 91.3 fL (80-94); Monocyte# 0.68 X10^3/uL; Monocyte% 10.2 % (0-10); NRBC Flagged by Analyzer 0 % (0-5); Neutrophil # 3.44 X10^3/uL (2.7-7.7); Neutrophil % 51.7 % (47-70); Platelet Count 186 K/mm3 (150-450); RBC Distribution Width CV 13.7 % (11.6-14.6); RBC Distribution Width SD 46.1 fl (35.1-43.9); Red Blood Count 5.95 M/mm3 (4.6-6.2); White Blood Count 6.6 K/mm3 (4.4-11.0)
[2021-03-18 10:12] LABS: ALB/GLOB Ratio 0.9 RATIO (0.9-2.4); AST(SGOT) 15 U/L (15-37); Alanine Aminotransfer ALT/SGPT 29 U/L (16-61); Albumin, Serum 3.5 g/dL (3.2-5.0); Alkaline Phosphatase 68 U/L (45-117); Anion Gap 5 (5-15); BUN 19 mg/dL (7-18); BUN/Creat Ratio 17.9 RATIO (10-20); Chloride 108 mmol/L (98-107); Cholesterol 230 mg/dL (200); Creatinine, Serum 1.06 mg/dL (0.70-1.30); EST Glomerular Filtration Rate 74 mL/min (>60); Est Glom Filt Rate - Afr Amer 89 mL/min (>60); Globulin 3.7 g/dL (2.2-4.2); Glucose 124 mg/dL (74-106); High Density Lipoprotein 38 mg/dL; Magnesium 1.9 mg/dL (1.6-2.6); Potassium 4.2 mmol/L (3.5-5.1); Protein, Total 7.2 g/dL (6.4-8.2); Sodium Level 138 mmol/L (136-145); T4 Free Direct 0.95 ng/dL (0.76-1.46); Thyroid Stim Hormone (TSH) 6.81 uIU/mL (0.358-3.74); Triglycerides 290 mg/dL; Uric Acid 5.6 mg/dL (3.5-7.2); Very Low Density Lipoprotein 58 mg/dL (5-40)
[2021-03-18 10:19] LABS: Hemoglobin A1c 5.8 % (3.8-5.6); Vitamin D,25 Hydroxy 27.1 ng/mL
== END ==
PROVIDERS: PCP Family Medicine; Referring Provider Family Medicine; Visit Provider Family Medicine
DX: E55.9 Vitamin D deficiency, unspecified (principal); I10 Essential (primary) hypertension; R73.02 Impaired glucose tolerance (oral); E78.5 Hyperlipidemia, unspecified; E03.9 Hypothyroidism, unspecified; I47.2 Ventricular tachycardia; M10.9 Gout, unspecified
CPT/HCPCS: 36415; 80053; 80061; 82306; 83036; 83735; 84439; 84443; 84550; 85025

== ENCOUNTER → 2021-06-17 08:03 | Outpatient (CLI) | payer MEDICARE, OTHER, SELFPAY ==
[2021-02-23 08:32] VITALS: BMI 38.2
[2021-06-17 10:17] LABS: Absolute Lymphocyte Count 2.31 X10^3/uL (0.83-4.51); Absolute Neutrophil Count 3.2 X10^3/uL (2.0-7.7); Basophil# 0.05 X10^3/uL; Basophil% 0.8 % (0-1); Eosinophil# 0.47 X10^3/uL; Eosinophils% 7.1 % (0-5); Hematocrit 54.6 % (40-54); Hemoglobin 17.2 g/dL (13.0-16.5); Lymphocyte # 2.31 X10^3/ul (0.83-4.51); Lymphocyte % 34.7 % (19-41); Mean Corp Hgb Conc 31.5 g/dL (32-36); Mean Corpuscular Hgb 28.6 pg (27.0-32.0); Mean Corpuscular Volume 90.8 fL (80-94); Mean Platelet Vol. 11.1 fl (6.2-12.0); Monocyte# 0.62 X10^3/uL; Monocyte% 9.3 % (0-10); NRBC Flagged by Analyzer 0 % (0-5); Neutrophil # 3.19 X10^3/uL (2.7-7.7); Neutrophil % 47.9 % (47-70); Platelet Count 199 K/mm3 (150-450); RBC Distribution Width CV 13.8 % (11.6-14.6); Red Blood Count 6.01 M/mm3 (4.6-6.2); White Blood Count 6.7 K/mm3 (4.4-11.0)
[2021-06-17 10:39] LABS: Hemoglobin A1c 5.7 % (3.8-5.6)
[2021-06-17 10:41] LABS: Vitamin D,25 Hydroxy 23.9 ng/mL
[2021-06-17 10:51] LABS: ALB/GLOB Ratio 0.9 RATIO (0.9-2.4); AST(SGOT) 20 U/L (15-37); Alanine Aminotransfer ALT/SGPT 30 U/L (16-61); Albumin, Serum 3.5 g/dL (3.2-5.0); Alkaline Phosphatase 61 U/L (45-117); Anion Gap 6 (5-15); BUN 20 mg/dL (7-18); BUN/Creat Ratio 21.7 RATIO (10-20); Calcium,Total 8.8 mg/dL (8.5-10.1); Chloride 105 mmol/L (98-107); Cholesterol 222 mg/dL (200); Creatinine, Serum 0.92 mg/dL (0.70-1.30); EST Glomerular Filtration Rate 87 mL/min (>60); Est Glom Filt Rate - Afr Amer 105 mL/min (>60); Globulin 3.9 g/dL (2.2-4.2); Glucose 107 mg/dL (74-106); High Density Lipoprotein 35 mg/dL; Potassium 4.4 mmol/L (3.5-5.1); Protein, Total 7.4 g/dL (6.4-8.2); Sodium Level 135 mmol/L (136-145); T4 Free Direct 0.94 ng/dL (0.76-1.46); Triglycerides 284 mg/dL; Very Low Density Lipoprotein 57 mg/dL (5-40)
[2021-06-18 20:19] LABS: Anti-Thyroglobulin AB < 1.0 IU/mL (0.0-0.9); Thyroglobulin, Serum Qt. 12.5 ng/mL (1.4-29.2); Thyroid Peroxidase AB < 8 IU/mL (0-34)
== END ==
PROVIDERS: PCP Family Medicine; Referring Provider Family Medicine; Visit Provider Family Medicine
DX: E55.9 Vitamin D deficiency, unspecified (principal); R73.02 Impaired glucose tolerance (oral); E03.8 Other specified hypothyroidism; I10 Essential (primary) hypertension; E78.5 Hyperlipidemia, unspecified
CPT/HCPCS: 36415; 80053; 80061; 82306; 83036; 84432; 84439; 84443; 85025; 86376; 86800

== ENCOUNTER → 2021-10-25 08:12 | Outpatient (CLI) | payer MEDICARE, OTHER, SELFPAY ==
[2021-10-25 10:01] LABS: Absolute Lymphocyte Count 2.04 X10^3/uL (0.83-4.51); Absolute Neutrophil Count 3.6 X10^3/uL (2.0-7.7); Basophil# 0.06 X10^3/uL; Basophil% 0.9 % (0-1); Eosinophil# 0.45 X10^3/uL; Eosinophils% 6.6 % (0-5); Hematocrit 54.8 % (40-54); Hemoglobin 17.3 g/dL (13.0-16.5); Lymphocyte # 2.04 X10^3/ul (0.83-4.51); Lymphocyte % 29.7 % (19-41); Mean Corp Hgb Conc 31.6 g/dL (32-36); Mean Corpuscular Hgb 28.8 pg (27.0-32.0); Mean Corpuscular Volume 91.2 fL (80-94); Monocyte# 0.68 X10^3/uL; Monocyte% 9.9 % (0-10); NRBC Flagged by Analyzer 0 % (0-5); Neutrophil # 3.61 X10^3/uL (2.7-7.7); Neutrophil % 52.6 % (47-70); Platelet Count 195 K/mm3 (150-450); RBC Distribution Width CV 14.1 % (11.6-14.6); RBC Distribution Width SD 46.7 fl (35.1-43.9); Red Blood Count 6.01 M/mm3 (4.6-6.2); White Blood Count 6.9 K/mm3 (4.4-11.0)
[2021-10-25 10:20] LABS: Hemoglobin A1c 5.7 % (3.8-5.6)
[2021-10-25 10:30] LABS: ALB/GLOB Ratio 0.8 RATIO (0.9-2.4); AST(SGOT) 13 U/L (15-37); Alanine Aminotransfer ALT/SGPT 28 U/L (16-61); Albumin, Serum 3.5 g/dL (3.2-5.0); Alkaline Phosphatase 73 U/L (45-117); Anion Gap 8 (5-15); BUN 18 mg/dL (7-18); BUN/Creat Ratio 16.8 RATIO (10-20); Chloride 102 mmol/L (98-107); Cholesterol 166 mg/dL (200); Creatinine, Serum 1.07 mg/dL (0.70-1.30); EST Glomerular Filtration Rate 73 mL/min (>60); Est Glom Filt Rate - Afr Amer 88 mL/min (>60); Ferritin 42 ng/mL (26-388); Globulin 4.2 g/dL (2.2-4.2); Glucose 136 mg/dL (74-106); High Density Lipoprotein 37 mg/dL; Iron 192 ug/dL (65-175); Iron Binding Capacity,Total 488 ug/dL (250-450); Potassium 4.3 mmol/L (3.5-5.1); Protein, Total 7.7 g/dL (6.4-8.2); Sodium Level 137 mmol/L (136-145); T4 Free Direct 0.92 ng/dL (0.76-1.46); Triglycerides 242 mg/dL; Very Low Density Lipoprotein 48 mg/dL (5-40)
[2021-10-25 10:52] LABS: Vitamin D,25 Hydroxy 24.2 ng/mL
[2021-10-26 14:20] LABS: Transferrin 298 mg/dL (177-329)
== END ==
PROVIDERS: PCP Family Medicine; Referring Provider Family Medicine; Visit Provider Family Medicine
DX: D75.1 Secondary polycythemia (principal); M10.9 Gout, unspecified; R73.02 Impaired glucose tolerance (oral); E78.5 Hyperlipidemia, unspecified; E55.9 Vitamin D deficiency, unspecified; E03.9 Hypothyroidism, unspecified; I47.2 Ventricular tachycardia
CPT/HCPCS: 36415; 80053; 80061; 82306; 82728; 83036; 83540; 83550; 84439; 84443; 84466; 84550; 85025

== ENCOUNTER 2022-02-18 08:00 | Outpatient (CLI) | payer MEDICARE, OTHER, SELFPAY ==
[2022-02-18 17:53] LABS: Hemoglobin 17.3 g/dL (13.0-16.5); Mean Corp Hgb Conc 31.1 g/dL (32-36); Mean Corpuscular Hgb 29.5 pg (27.0-32.0); Mean Corpuscular Volume 95.1 fL (80-94); Mean Platelet Vol. 11.3 fl (6.2-12.0); Platelet Count 182 K/mm3 (150-450); RBC Distribution Width CV 14.2 % (11.6-14.6); RBC Distribution Width SD 49.2 fl (35.1-43.9); Red Blood Count 5.86 M/mm3 (4.6-6.2); White Blood Count 7.1 K/mm3 (4.4-11.0)
[2022-02-18 18:01] LABS: Hematocrit 55.7 % (40-54); Scan Indicated on CBC? Y/N NO
[2022-02-18 18:14] LABS: ALB/GLOB Ratio 1.1 RATIO (0.9-2.4); AST(SGOT) 19 U/L (15-37); Alanine Aminotransfer ALT/SGPT 31 U/L (16-61); Albumin, Serum 3.8 g/dL (3.2-5.0); Alkaline Phosphatase 78 U/L (45-117); Anion Gap 6 (5-15); BUN 18 mg/dL (7-18); BUN/Creat Ratio 18.4 RATIO (10-20); Calcium,Total 9.4 mg/dL (8.5-10.1); Chloride 105 mmol/L (98-107); Cholesterol 178 mg/dL (200); Creatinine, Serum 0.98 mg/dL (0.70-1.30); EST Glomerular Filtration Rate 81 mL/min (>60); Est Glom Filt Rate - Afr Amer 98 mL/min (>60); Globulin 3.4 g/dL (2.2-4.2); Glucose 131 mg/dL (74-106); High Density Lipoprotein 38 mg/dL; Potassium 4.2 mmol/L (3.5-5.1); Protein, Total 7.2 g/dL (6.4-8.2); Sodium Level 139 mmol/L (136-145); Triglycerides 282 mg/dL; Uric Acid 4.9 mg/dL (3.5-7.2); Very Low Density Lipoprotein 56 mg/dL (5-40)
== END 2022-02-18 23:59 | disposition home or self-care (01) ==
LOC: MFPLAB 08:02
PROVIDERS: PCP Family Medicine; Referring Provider Family Medicine; Visit Provider Family Medicine
DX: I10 Essential (primary) hypertension (principal); E78.5 Hyperlipidemia, unspecified
CPT/HCPCS: 36415; 80053; 80061; 83735; 84550; 85027

== ENCOUNTER 2022-02-23 09:12 | Outpatient (CLI) | payer MEDICARE, OTHER, SELFPAY ==
[2022-02-23 10:28] LABS: Hemoglobin A1c 6.1 % (3.8-5.6)
[2022-02-23 10:59] LABS: PSA,Total - Annual Screen 0.97 ng/mL (0.00-4.00)
== END 2022-02-23 23:59 | disposition home or self-care (01) ==
LOC: MFPLAB 09:14
PROVIDERS: PCP Family Medicine; Referring Provider Family Medicine; Visit Provider Family Medicine
DX: R73.09 Other abnormal glucose (principal); Z12.5 Encounter for screening for malignant neoplasm of prostate
CPT/HCPCS: 36415; 83036; 84153; G0103

== ENCOUNTER → 2022-06-16 | Outpatient (CLI) | payer MEDICARE, OTHER, SELFPAY ==
[2022-06-16 10:25] LABS: Absolute Lymphocyte Count 2.01 X10^3/uL (0.83-4.51); Absolute Neutrophil Count 3.7 X10^3/uL (2.0-7.7); Basophil# 0.03 X10^3/uL; Basophil% 0.4 % (0-1); Eosinophil# 0.37 X10^3/uL; Eosinophils% 5.4 % (0-5); Hematocrit 51.7 % (40-54); Lymphocyte # 2.01 X10^3/ul (0.83-4.51); Lymphocyte % 29.6 % (19-41); Mean Corp Hgb Conc 32.9 g/dL (32-36); Mean Corpuscular Hgb 29.7 pg (27.0-32.0); Mean Corpuscular Volume 90.4 fL (80-94); Mean Platelet Vol. 10.8 fl (6.2-12.0); Monocyte# 0.66 X10^3/uL; Monocyte% 9.7 % (0-10); NRBC Flagged by Analyzer 0 % (0-5); Neutrophil % 54.6 % (47-70); Platelet Count 173 K/mm3 (150-450); RBC Distribution Width CV 13.7 % (11.6-14.6); RBC Distribution Width SD 44.8 fl (35.1-43.9); Red Blood Count 5.72 M/mm3 (4.6-6.2); White Blood Count 6.8 K/mm3 (4.4-11.0)
[2022-06-16 10:51] LABS: Vitamin D,25 Hydroxy 33.6 ng/mL
[2022-06-16 11:10] LABS: ALB/GLOB Ratio 0.9 RATIO (0.9-2.4); AST(SGOT) 22 U/L (15-37); Alanine Aminotransfer ALT/SGPT 32 U/L (16-61); Albumin, Serum 3.6 g/dL (3.2-5.0); Alkaline Phosphatase 67 U/L (45-117); Anion Gap 8 (5-15); BUN 22 mg/dL (7-18); BUN/Creat Ratio 21.8 RATIO (10-20); Calcium,Total 9.1 mg/dL (8.5-10.1); Chloride 105 mmol/L (98-107); Cholesterol 159 mg/dL (200); Creatinine, Serum 1.01 mg/dL (0.70-1.30); EST Glomerular Filtration Rate 78 mL/min (>60); Est Glom Filt Rate - Afr Amer 94 mL/min (>60); Globulin 3.9 g/dL (2.2-4.2); Glucose 120 mg/dL (74-106); High Density Lipoprotein 38 mg/dL; Potassium 4.4 mmol/L (3.5-5.1); Protein, Total 7.5 g/dL (6.4-8.2); Sodium Level 135 mmol/L (136-145); T4 Free Direct 0.97 ng/dL (0.76-1.46); Thyroid Stim Hormone (TSH) 6.21 uIU/mL (0.358-3.74); Triglycerides 228 mg/dL; Uric Acid 5.2 mg/dL (3.5-7.2); Very Low Density Lipoprotein 46 mg/dL (5-40)
[2022-06-16 13:51] LABS: Hemoglobin A1c 5.8 % (3.8-5.6)
== END | disposition home or self-care (01) ==
LOC: MFPLAB 08:11
PROVIDERS: PCP Family Medicine; Referring Provider Family Medicine; Visit Provider Family Medicine
DX: I10 Essential (primary) hypertension (principal); I47.2 Ventricular tachycardia; R73.09 Other abnormal glucose; E03.8 Other specified hypothyroidism; M10.9 Gout, unspecified; E55.9 Vitamin D deficiency, unspecified
CPT/HCPCS: 36415; 80053; 80061; 82306; 83036; 83735; 84439; 84443; 84550; 85025

== ENCOUNTER → 2022-10-19 | Outpatient (CLI) | payer MEDICARE, OTHER, SELFPAY ==
[2022-10-19 10:22] LABS: Absolute Lymphocyte Count 2.54 X10^3/uL (0.83-4.51); Absolute Neutrophil Count 3.7 X10^3/uL (2.0-7.7); Basophil# 0.07 X10^3/uL; Basophil% 0.9 % (0-1); Eosinophil# 0.43 X10^3/uL; Eosinophils% 5.8 % (0-5); Hematocrit 54.2 % (40-54); Hemoglobin 17.6 g/dL (13.0-16.5); Lymphocyte # 2.54 X10^3/ul (0.83-4.51); Lymphocyte % 34.1 % (19-41); Mean Corp Hgb Conc 32.5 g/dL (32-36); Mean Corpuscular Hgb 29.9 pg (27.0-32.0); Monocyte# 0.69 X10^3/uL; Monocyte% 9.3 % (0-10); NRBC Flagged by Analyzer 0 % (0-5); Neutrophil % 49.8 % (47-70); Platelet Count 185 K/mm3 (150-450); RBC Distribution Width CV 13.7 % (11.6-14.6); RBC Distribution Width SD 46.3 fl (35.1-43.9); Red Blood Count 5.89 M/mm3 (4.6-6.2); White Blood Count 7.4 K/mm3 (4.4-11.0)
[2022-10-19 10:34] LABS: Vitamin D,25 Hydroxy 21.2 ng/mL
[2022-10-19 10:39] LABS: ALB/GLOB Ratio 1.1 RATIO (0.9-2.4); AST(SGOT) 18 U/L (15-37); Alanine Aminotransfer ALT/SGPT 30 U/L (16-61); Albumin, Serum 3.7 g/dL (3.2-5.0); Alkaline Phosphatase 68 U/L (45-117); Anion Gap 8 (5-15); BUN 20 mg/dL (7-18); BUN/Creat Ratio 19.6 RATIO (10-20); Calcium,Total 9.4 mg/dL (8.5-10.1); Chloride 103 mmol/L (98-107); Cholesterol 173 mg/dL (200); Creatinine, Serum 1.02 mg/dL (0.70-1.30); EST Glomerular Filtration Rate 77 mL/min (>60); Est Glom Filt Rate - Afr Amer 93 mL/min (>60); Globulin 3.3 g/dL (2.2-4.2); Glucose 120 mg/dL (74-106); High Density Lipoprotein 40 mg/dL; Potassium 4.1 mmol/L (3.5-5.1); Sodium Level 140 mmol/L (136-145); T4 Free Direct 0.99 ng/dL (0.76-1.46); Thyroid Stim Hormone (TSH) 5.95 uIU/mL (0.358-3.74); Triglycerides 247 mg/dL; Very Low Density Lipoprotein 49 mg/dL (5-40)
[2022-10-19 10:46] LABS: Hemoglobin A1c 6.2 % (3.8-5.6)
== END | disposition home or self-care (01) ==
LOC: MFPLAB 08:05
PROVIDERS: PCP Family Medicine; Referring Provider Family Medicine; Visit Provider Family Medicine
DX: I10 Essential (primary) hypertension (principal); R73.02 Impaired glucose tolerance (oral); E78.5 Hyperlipidemia, unspecified; E03.8 Other specified hypothyroidism; E55.9 Vitamin D deficiency, unspecified
CPT/HCPCS: 36415; 80053; 80061; 82306; 83036; 84439; 84443; 85025

== ENCOUNTER → 2022-10-27 | Outpatient (CLI) | payer MEDICARE, OTHER, SELFPAY ==
--- NOTE | 2022-10-27 13:18 | STRESSREP ---
Stress Test Report Pharmacologic myocardial perfusion stress test. 67-year-old man with a history of ischemic cardiomyopathy status post ICD implantation Resting EKG demonstrates ventricular paced rhythm with a rate of 85 bpm. Resting blood pressure is 108/64 mmHg. 0.4 mg of regadenoson was infused per usual protocol followed by rapid intravenous saline flush injection. Continuous EKG monitoring was performed. The maximum heart rate was 100 bpm which was 66% of max impacted heart rate the maximum workload was 1 metabolic equivalent. At rest there were no ST or T wave changes noted to suggest ischemia and at peak infusion nonspecific ST changes were noted with did not meet the criteria for ischemia. Occasional premature ventricular complexes noted. No clinical angina is noted. The final blood pressure was 110/70 mmHg. Myocardial perfusion protocol. 14.9 mCi of technetium 99m sestamibi was injected at rest. 0.4 mg of regadenoson was infused per usual protocol. At peak infusion 44.9 mCi of technetium 99m sestamibi was injected stress images were obtained stress and rest images were reconstructed and compared in the short axis vertical long and horizontal long axis. Gated images were also obtained. Perfusion SPECT analysis: Review of the stress images demonstrate a dilated cardiac silhouette size. There is significant reduction of perfusion noted involving the anterior wall of the anteroseptal wall and apex. The lateral wall and inferolateral wall appear to be normally perfused. The resting images demonstrate a similar patent. The above is suggestive of a previous extensive anterior and anterior septal infarct. Bundle branch morphology could also account for the above. There is also an infarct involving the apex and inferoapical wall. No reversibility is noted to suggest ischemia. Gated SPECT analysis: The gated ejection fraction is 19%. Conclusion: Abnormal pharmacologic myocardial perfusion stress test. Previous extensive anterior anteroseptal and apical infarct is noted Reduced ejection fraction. Ischemic cardiomyopathy
== END | disposition home or self-care (01) ==
LOC: CVS 07:07
PROVIDERS: PCP Family Medicine; Visit Provider Family Medicine
DX: R07.9 Chest pain, unspecified (principal)
CPT/HCPCS: 78452; 93017; A9500; A4216; J2785

== ENCOUNTER → 2023-02-17 | Outpatient (CLI) | payer MEDICARE, OTHER, SELFPAY ==
[2023-02-17 09:59] LABS: Absolute Lymphocyte Count 2.26 X10^3/uL (0.83-4.51); Absolute Neutrophil Count 3.5 X10^3/uL (2.0-7.7); Basophil# 0.07 X10^3/uL; Eosinophils% 5.8 % (0-5); Hemoglobin 17.6 g/dL (13.0-16.5); Lymphocyte # 2.26 X10^3/ul (0.83-4.51); Lymphocyte % 32.7 % (19-41); Mean Corp Hgb Conc 31.6 g/dL (32-36); Mean Corpuscular Hgb 29.1 pg (27.0-32.0); Mean Corpuscular Volume 92.2 fL (80-94); Mean Platelet Vol. 11.6 fl (6.2-12.0); Monocyte# 0.71 X10^3/uL; Monocyte% 10.3 % (0-10); NRBC Flagged by Analyzer 0 % (0-5); Neutrophil # 3.47 X10^3/uL (2.7-7.7); Neutrophil % 50.1 % (47-70); Platelet Count 173 K/mm3 (150-450); RBC Distribution Width CV 13.9 % (11.6-14.6); RBC Distribution Width SD 46.5 fl (35.1-43.9); Red Blood Count 6.04 M/mm3 (4.6-6.2); White Blood Count 6.9 K/mm3 (4.4-11.0)
[2023-02-17 10:09] LABS: Hematocrit 55.7 % (40-54)
[2023-02-17 10:25] LABS: Hemoglobin A1c 5.7 % (3.8-5.6)
[2023-02-17 10:33] LABS: Vitamin D,25 Hydroxy 39.4 ng/mL
[2023-02-17 10:36] LABS: ALB/GLOB Ratio 0.9 RATIO (0.9-2.4); AST(SGOT) 22 U/L (15-37); Alanine Aminotransfer ALT/SGPT 28 U/L (16-61); Albumin, Serum 3.6 g/dL (3.2-5.0); Alkaline Phosphatase 68 U/L (45-117); Anion Gap 5 (5-15); BUN 17 mg/dL (7-18); BUN/Creat Ratio 18.2 RATIO (10-20); Calcium,Total 9.2 mg/dL (8.5-10.1); Chloride 105 mmol/L (98-107); Cholesterol 135 mg/dL (200); Creatinine, Serum 0.94 mg/dL (0.70-1.30); EST Glomerular Filtration Rate 85 mL/min (>60); Est Glom Filt Rate - Afr Amer 103 mL/min (>60); Globulin 3.8 g/dL (2.2-4.2); Glucose 116 mg/dL (74-106); High Density Lipoprotein 38 mg/dL; Potassium 4.3 mmol/L (3.5-5.1); Protein, Total 7.4 g/dL (6.4-8.2); Sodium Level 136 mmol/L (136-145); T4 Free Direct 0.88 ng/dL (0.76-1.46); Thyroid Stim Hormone (TSH) 5.47 uIU/mL (0.358-3.74); Triglycerides 184 mg/dL; Very Low Density Lipoprotein 37 mg/dL (5-40)
== END | disposition home or self-care (01) ==
LOC: MFPLAB 08:15
PROVIDERS: PCP Family Medicine; Referring Provider Family Medicine; Visit Provider Family Medicine
DX: I10 Essential (primary) hypertension (principal); R73.02 Impaired glucose tolerance (oral); E03.8 Other specified hypothyroidism; E55.9 Vitamin D deficiency, unspecified
CPT/HCPCS: 36415; 80053; 80061; 82306; 83036; 84439; 84443; 85025

== ENCOUNTER → 2023-06-19 | Outpatient (CLI) | payer MEDICARE, OTHER, SELFPAY ==
[2023-06-19 08:13] LABS: Bacteria 0 SEEN /hpf (None Seen); Mucous, Urine 0 SEEN /hpf (<or=2+); Red Blood Cells-Urine 0 SEEN /hpf (0-5); Squamous Epithelial Cells - UA 0 SEEN /hpf (0-5); White Blood Cells 0 SEEN /hpf (0-5)
[2023-06-19 10:23] LABS: Absolute Lymphocyte Count 2.03 X10^3/uL (0.83-4.51); Absolute Neutrophil Count 3.6 X10^3/uL (2.0-7.7); Basophil# 0.06 X10^3/uL; Basophil% 0.9 % (0-1); Eosinophil# 0.45 X10^3/uL; Eosinophils% 6.6 % (0-5); Lymphocyte # 2.03 X10^3/ul (0.83-4.51); Lymphocyte % 29.7 % (19-41); Mean Corp Hgb Conc 31.1 g/dL (32-36); Mean Corpuscular Hgb 29.4 pg (27.0-32.0); Mean Corpuscular Volume 94.5 fL (80-94); Mean Platelet Vol. 11.1 fl (6.2-12.0); Monocyte# 0.67 X10^3/uL; Monocyte% 9.8 % (0-10); NRBC Flagged by Analyzer 0 % (0-5); Neutrophil % 52.7 % (47-70); Platelet Count 184 K/mm3 (150-450); RBC Distribution Width CV 13.9 % (11.6-14.6); RBC Distribution Width SD 47.6 fl (35.1-43.9); Red Blood Count 6.13 M/mm3 (4.6-6.2); White Blood Count 6.8 K/mm3 (4.4-11.0)
[2023-06-19 10:23] LABS: Color, Urine Yellow (Yellow); Glucose, Dipstick Normal (Normal); Ketone-Dipstick Negative (Negative); Leukocyte Esterase-Dipstick Negative /ul (Negative); Nitrite-Dipstick Negative (Negative); Occult Blood-Urine Negative /ul (Negative); Protein-Dipstick Negative (Negative); Urine Bilirubin Dipstick Negative (Negative); Urine Clarity Clear (Clear); Urine Urobilinogen Normal (Normal)
[2023-06-19 10:37] LABS: Vitamin D,25 Hydroxy 32.1 ng/mL
[2023-06-19 10:38] LABS: Hemoglobin A1c 5.4 % (3.8-5.6)
[2023-06-19 10:44] LABS: ALB/GLOB Ratio 0.9 RATIO (0.9-2.4); AST(SGOT) 18 U/L (15-37); Alanine Aminotransfer ALT/SGPT 29 U/L (16-61); Albumin, Serum 3.7 g/dL (3.2-5.0); Alkaline Phosphatase 55 U/L (45-117); Anion Gap 3 (5-15); BUN 20 mg/dL (7-18); BUN/Creat Ratio 16.5 RATIO (10-20); Calcium,Total 9.5 mg/dL (8.5-10.1); Chloride 101 mmol/L (98-107); Cholesterol 252 mg/dL (200); Creatinine, Serum 1.21 mg/dL (0.70-1.30); EST Glomerular Filtration Rate 63 mL/min (>60); Est Glom Filt Rate - Afr Amer 76 mL/min (>60); Globulin 3.9 g/dL (2.2-4.2); Glucose 123 mg/dL (74-106); High Density Lipoprotein 39 mg/dL; Potassium 4.8 mmol/L (3.5-5.1); Protein, Total 7.6 g/dL (6.4-8.2); Sodium Level 134 mmol/L (136-145); T4 Free Direct 0.78 ng/dL (0.76-1.46); Triglycerides 301 mg/dL; Uric Acid 4.9 mg/dL (3.5-7.2); Very Low Density Lipoprotein 60 mg/dL (5-40)
[2023-06-19 11:06] LABS: Magnesium 2.2 mg/dL (1.6-2.6)
[2023-06-19 11:27] LABS: Hematocrit 57.9 % (40-54)
[2023-06-20 15:39] LABS: Pathologist Review Reviewed
== END | disposition home or self-care (01) ==
LOC: MFPLAB 08:05
PROVIDERS: Internal Medicine Cardiovascular Disease; PCP Family Medicine; Visit Provider Family Medicine
DX: I47.20 Ventricular tachycardia, unspecified (principal); Z95.5 Presence of coronary angioplasty implant and graft; I25.5 Ischemic cardiomyopathy; Z95.810 Presence of automatic (implantable) cardiac defibrillator; I10 Essential (primary) hypertension; R73.02 Impaired glucose tolerance (oral); E55.9 Vitamin D deficiency, unspecified
CPT/HCPCS: 36415; 80053; 80061; 81001; 82306; 83036; 83735; 84439; 84443; 84550; 85025

== ENCOUNTER → 2023-09-25 | Outpatient (CLI) | payer MEDICARE, OTHER, SELFPAY ==
[2023-09-25 10:16] LABS: Absolute Lymphocyte Count 2.04 X10^3/uL (0.83-4.51); Absolute Neutrophil Count 3.8 X10^3/uL (2.0-7.7); Basophil# 0.06 X10^3/uL; Basophil% 0.9 % (0-1); Eosinophil# 0.41 X10^3/uL; Eosinophils% 5.9 % (0-5); Hemoglobin 17.3 g/dL (13.0-16.5); Lymphocyte # 2.04 X10^3/ul (0.83-4.51); Lymphocyte % 29.4 % (19-41); Mean Corp Hgb Conc 31.5 g/dL (32-36); Mean Corpuscular Hgb 29.4 pg (27.0-32.0); Mean Corpuscular Volume 93.5 fL (80-94); Monocyte# 0.65 X10^3/uL; Monocyte% 9.4 % (0-10); NRBC Flagged by Analyzer 0 % (0-5); Neutrophil # 3.77 X10^3/uL (2.7-7.7); Neutrophil % 54.1 % (47-70); Platelet Count 167 K/mm3 (150-450); RBC Distribution Width CV 14.1 % (11.6-14.6); RBC Distribution Width SD 48.7 fl (35.1-43.9); Red Blood Count 5.88 M/mm3 (4.6-6.2)
[2023-09-25 10:48] LABS: Vitamin D,25 Hydroxy 46.8 ng/mL
[2023-09-25 11:07] LABS: ALB/GLOB Ratio 0.9 RATIO (0.9-2.4); AST(SGOT) 15 U/L (15-37); Alanine Aminotransfer ALT/SGPT 30 U/L (16-61); Albumin, Serum 3.5 g/dL (3.2-5.0); Alkaline Phosphatase 57 U/L (45-117); Anion Gap 9 (5-15); BUN 20 mg/dL (7-18); BUN/Creat Ratio 18.3 RATIO (10-20); Calcium,Total 9.5 mg/dL (8.5-10.1); Chloride 105 mmol/L (98-107); Cholesterol 191 mg/dL (200); Creatinine, Serum 1.09 mg/dL (0.70-1.30); EST Glomerular Filtration Rate 71 mL/min (>60); Est Glom Filt Rate - Afr Amer 86 mL/min (>60); Glucose 125 mg/dL (74-106); High Density Lipoprotein 46 mg/dL; Potassium 4.3 mmol/L (3.5-5.1); Protein, Total 7.5 g/dL (6.4-8.2); Sodium Level 138 mmol/L (136-145); Thyroid Stim Hormone (TSH) 7.42 uIU/mL (0.358-3.74); Triglycerides 219 mg/dL; Very Low Density Lipoprotein 44 mg/dL (5-40)
[2023-09-25 11:12] LABS: Hemoglobin A1c 5.6 % (3.8-5.6)
== END | disposition home or self-care (01) ==
LOC: MFPLAB 08:21
PROVIDERS: PCP Family Medicine; Visit Provider Family Medicine
DX: E03.8 Other specified hypothyroidism (principal); E55.9 Vitamin D deficiency, unspecified; R73.02 Impaired glucose tolerance (oral); I10 Essential (primary) hypertension; E78.5 Hyperlipidemia, unspecified
CPT/HCPCS: 36415; 80053; 80061; 82306; 83036; 84439; 84443; 85025

== ENCOUNTER → 2023-12-08 | Outpatient (CLI) | payer MEDICARE, OTHER, SELFPAY ==
--- OUTSIDE RECORDS SUMMARY | 2023-12-08 17:03 | XMS RPT_ITS | CCD ---
Author Name Unknown Address [address] [place] [address] Organization [facility] Care Team Providers Care Hotel Service Supervisor Name Role Phone Quan Hollins Unavailable Unavailable Hanna, Miky Unavailable Unavailable Hanna, Miky Unavailable Unavailable Redarely, Quan Unavailable Unavailable Hanna, Miky Unavailable Unavailable Hanna, Miky Unavailable Unavailable Redle, Quna Unavailable Unavailable Hanna, Miky Unavailable Unavailable Hanna, Miky Unavailable Unavailable Shelby, Terry Henrigue Unavailable Carmen vailable Shelby, Terry Henrigue Unavailable Carmen vailable Shelby, Terry Henrigue Unavailable Carmen vailable HannaMiky jimenez Unavailable Unavailabl e Shelby, Terry Henrigue Unavailable Carmen vailable Shelby, Terry Henrigue Unavailable Carmen vailable HannaMiky jimenez Unavailable Unavailabl e Shelby, Terry Henrigue Unavailable Carmen vailable Shelby, Terry Henrigue Unavailable Carmen vailable Shelby, Terry Henrigue Unavailable Carmen vailable Miky Ferreira Unavailable Unavailabl e Shelby, Terry Henrigue Unavailable Carmen vailable Shelby, Terry Henrigue Unavailable Carmen vailable Miky Ferreira Unavailable Unavailabl e Cakulev, Toro Hailey Unavailable Unavailable Miky Ferreira Unavailable Unavailabl e Cakulev, Toro Hailey Unavailable Unavailable Problems Active Problems Problem Classification Problem Date Documented Date Episodic/Chronic Cardiac dysrhythmias (2 sources) Ventricular tachycardia; Translations: [Ventricular tachycardia] Onset: 02-28-2018 Chronic Conduction disorders (4 sources) Presence of automatic (implantable) cardiac defibrillator; Translations: [Left bundle-branch block, unspecified] Onset: 07-11-2017 Chronic Congestive heart failure; nonhypertensive (2 sources) Heart failure, unspecified; Translations: [Heart failure, unspecified] Onset: 07-11-2017 Chronic Congestive heart failure; nonhypertensive (2 sources) Congestive heart failure; nonhypertensive Onset: 07-26-2017 Coronary atherosclerosis and other heart disease (2 sources) Atherosclerotic heart disease of [place] coronary artery without angina pectoris; Translations: [Athscl heart disease of [place] coronary artery w/o ang pctrs] Onset: 07-11-2017 Chronic Coronary atherosclerosis and other heart disease (1 source) Coronary atherosclerosis and other heart disease Onset: 07-05-2017 Disorders of lipid metabolism (2 sources) Hyperlipidemia, unspecified; Translations: [Hyperlipidemia, unspecified] Onset: 07-11-2017 Chronic Gout and other crystal arthropathies (2 sources) Gout, unspecified; Translations: [Gout, unspecified] Onset: 07-11-2017 Chronic Hypertension with complications and secondary hypertension (2 sources) Hypertensive heart disease with heart failure; Translations: [Hypertensive heart disease with heart failure] Onset: 07-11-2017 Chronic Other and ill-defined heart disease (2 sources) Heart disease, unspecified; Translations: [Heart disease, unspecified] Onset: 07-11-2017 Chronic Unclassified (1 source) Athscl heart disease of [place] coronary artery w/o ang pctrs / I25.10(ICD-10) Onset: 08-02-2017 Unclassified (1 source) Old myocardial infarction / I25.2(ICD-10) Onset: 08-02-2017 Unclassified (2 sources) Presence of automatic (implantable) cardiac defibrillator / Z95.810(ICD-10) Onset: 07-26-2017 Unclassified (2 sources) Ventricular fibrillation / I49.01(ICD-10) Onset: 07-26-2017 Past or Other Problems Problem Classification Problem Date Documented Da te Episodic/Chronic Coronary atherosclerosis and other heart disease (2 sources) Presence of coronary angioplasty implant and graft; Translations: [Presence of coronary angioplasty implant and graft] Onset: 07-11-2017 Episodic Screening or history of mental health and substance abuse (2 sources) Personal history of nicotine dependence; Translations: [Personal history of nicotine dependence] Onset: 07-11-2017 Episodic Unclassified (4 sources) Family history of ischemic heart disease and other diseases of the circulatory system; Translations: [Family history of diabetes mellitus] Onset: 07-11-2017 Episodic Results Test Name Value Interpretation Reference Range Facil ity Encounters Encounter Date Encounter Type Care Provider Facility Start: 02-28-2018 Ambulatory [facility] Start: 09-06-2017 Ambulatory Terry forbes Facility:[facility] Start: 08-02-2017 Ambulatory Terry Berg ei Facility:[facility] Start: 07-26-2017 Ambulatory Toro Hudson ity:[facility] Start: 07-11-2017 Ambulatory Qu[facility] Start: 07-07-2017 Ambulatory Quan Bur[facility] Start: 07-05-2017 Ambulatory Terry forbes Facility:[facility] Payers Date Payer Category Payer Policy ID Self-pay Unknown Unknown [id number] Summary Purpose Family History No Family History Records FoundNo Family History Records FoundNo Family History Records FoundNo Family History Records Found Advance Directives No Advanced Directives Records FoundNo Advanced Directives Records FoundNo Advanced Directives Records FoundNo Advanced Directives Records Found Additional Source Comments (unrecognized sect ion and content) No Status Records FoundNo Status Records FoundNo Status Records FoundNo Status Records Found INFORMATION SOURCE (unrecogn ized section and content) DATE CREATED AUTHOR AUTHOR'S ORGANIZ ATION 05/15/2018 [facility] DATE CREATED AUTHOR AUTHOR'S ORGANIZ ATION 05/16/2018 [facility] DATE CREATED AUTHOR AUTHOR'S ORGANIZ ATION 04/29/2019 [facility] FOR RECORDS PERTAINING TO PATIENTS WHO ARE OR HAVE BEEN ENROLLED IN A CHEMICAL DEPENDENCY/SUBSTANCEABUSE PROGRAM, SOME INFORMATION MAY BE OMITTED. This clinical summary was aggregated from multiple sources. Caution should be exercised in using it in the provision of clinical care. This summary normalizes information from multiple sources, and as a consequence, information in this document may materially change the coding, format and clinical context of patient data. In addition, data may be omitted in some cases. CLINICAL DECISIONS SHOULD BE BASED ON THE PRIMARY CLINICAL RECORDS. [employer] provides no warranty or guarantee of the accuracy or completeness of information in this document.
[2023-12-08 17:56] LABS: PSA,Total - Annual Screen 1.28 ng/mL (0.00-4.00)
== END | disposition home or self-care (01) ==
LOC: MFPLAB 17:01
PROVIDERS: PCP Family Medicine; Visit Provider Family Medicine
DX: Z12.5 Encounter for screening for malignant neoplasm of prostate (principal)
CPT/HCPCS: 36415; 84153; G0103

== ENCOUNTER → 2024-04-04 | Outpatient (CLI) | payer MEDICARE, OTHER, SELFPAY ==
[2024-04-04 12:47] LABS: ALB/GLOB Ratio 0.8 RATIO (0.9-2.4); AST(SGOT) 27 U/L (15-37); Alanine Aminotransfer ALT/SGPT 37 U/L (16-61); Albumin, Serum 3.4 g/dL (3.2-5.0); Alkaline Phosphatase 140 U/L (45-117); Anion Gap 9 (5-15); BUN 48 mg/dL (7-18); BUN/Creat Ratio 26.8 RATIO (10-20); Calcium,Total 9.5 mg/dL (8.5-10.1); Chloride 103 mmol/L (98-107); Cholesterol 122 mg/dL (200); Creatinine, Serum 1.79 mg/dL (0.70-1.30); EST Glomerular Filtration Rate 40 mL/min (>60); Est Glom Filt Rate - Afr Amer 48 mL/min (>60); Globulin 4.1 g/dL (2.2-4.2); Glucose 94 mg/dL (74-106); High Density Lipoprotein 41 mg/dL; Magnesium 2.6 mg/dL (1.6-2.6); Potassium 4.3 mmol/L (3.5-5.1); Protein, Total 7.5 g/dL (6.4-8.2); Sodium Level 136 mmol/L (136-145); T4 Free Direct 1.15 ng/dL (0.76-1.46); Triglycerides 114 mg/dL; Very Low Density Lipoprotein 23 mg/dL (5-40)
[2024-04-04 13:10] LABS: Hemoglobin A1c 5.5 % (3.8-5.6)
== END | disposition home or self-care (01) ==
LOC: MFPLAB 09:23
PROVIDERS: PCP Family Medicine; Visit Provider Family Medicine
DX: E03.8 Other specified hypothyroidism (principal); I10 Essential (primary) hypertension; Z12.5 Encounter for screening for malignant neoplasm of prostate; R73.02 Impaired glucose tolerance (oral)
CPT/HCPCS: 36415; 80053; 80061; 83036; 83735; 84439; 84443

== ENCOUNTER 2024-04-05 02:59 | Inpatient (IN) | payer MEDICARE, OTHER, SELFPAY ==
[2024-04-05] VITALS (11 sets, daily range): BP systolic 96–103; BP diastolic 77–85; PULSE 69–71; RESP 16–18; TEMP 35.7–36.6; O2SAT 85–100; BMI 30.9; BMI 30.5
--- NOTE | 2024-04-05 03:17 | RAD_ITS ---
EXAM: XR CHEST, 1 VIEW CLINICAL INDICATION: SOB TECHNIQUE: Frontal view of the chest. COMPARISON: No relevant prior studies available. FINDINGS: LUNGS AND PLEURAL SPACES: Indistinct left costophrenic angle consistent with a very small left pleural effusion. Hazy infiltrates at the left lung base with slight indistinctness of the left hemidiaphragm, secondary to atelectasis and/or minimal pneumonia. Right lung is clear. No right pleural effusion. HEART: Mild/moderate cardiomegaly is present with normal pulmonary vasculature. Cardiac pacemaker/internal defibrillator in place. MEDIASTINUM: Thoracic aorta is minimally elongated. BONES/JOINTS: Thoracic degenerative spurring. No acute fracture. SOFT TISSUES: Unremarkable. RAD/Chest 1 View (Portable) IMPRESSION: Minimal retrocardiac infiltrates due to atelectasis and possible minimal pneumonia. Minimal left pleural effusion. No evidence for pulmonary edema. Electronically Signed: Mike Nelson MD at 4:26 EDT ,
--- NOTE | 2024-04-05 03:17 | EKG12_ITS ---
Test Reason : DYSRHYTHMIA Blood Pressure : / mmHG Vent. Rate : 070 BPM Atrial Rate : 070 BPM P-R Int : 128 ms QRS Dur : 212 ms QT Int : 600 ms P-R-T Axes : 009 163 070 degrees QTc Int : 648 ms AV dual-paced rhythm Biventricular pacemaker detected Abnormal ECG Confirmed by Mauricio Noriega ([id number]), newspaper or periodical editor JOSEF ALMAGUER ([id number]) on 04/08/2024 10:26:07 AM Referred By: Confirmed By:Mauricio Noriega
--- NOTE | 2024-04-05 03:23 | EDS_ITS ---
HPI History of Present Illness Chief Complaint: Shortness of Breath Informant: patient Narrative Narrative: Patient presents with intermittent shortness of breath on exertion. He states he first noticed this about 3 months ago. He was pushing his trash cans to the curb when he became very short of breath and was not sure he was on a get back in the house. Since that time he has noted shortness of breath on exertion. He will occasionally have left-sided chest pain and will take nitro, but it is not necessarily associated with exertion as the shortness of breath is. He does note a very rare cough and did note some blood-tinged sputum yesterday. This morning patient got short of breath walking in his home and called EMS. He was able to ambulate to the cot per their report. Patient does have known history of coronary artery disease with cardiac stent placement in 2007. He has an ICD and generator was most recently changed in 2019. It appears patient's last cardiac catheterization was in 2016 and his last stress test was in October 2022. He has a reduced EF of 25% noted on most recent echocardiogram from 2020. [facility] Medical History Myalgia Obesity Atherosclerotic heart disease of [place] coronary artery without angina pectoris Ischemic cardiomyopathy LBBB (left bundle branch block) Essential (primary) hypertension HLD (hyperlipidemia) COPD (chronic obstructive pulmonary disease) Home Medications ?Medication ?Instructions ?Recorded ?Last Taken ?Type aspirin 81 mg tablet,delayed 81 mg PO DAILY 12/27/19 Unknown History release allopurinol 300 mg tablet 300 mg PO DAILY 05/25/22 Unknown History spironolactone 25 mg tablet 12.5 mg (1/2 x 25 mg) PO DAILY #45 11/30/22 Unknown Rx tabs nitroglycerin 0.4 mg sublingual 0.4 mg sublingual Q5-15M PRN chest 06/01/23 Unknown Rx tablet pain #25 tabs amiodarone 200 mg tablet 200 mg PO DAILY #90 tabs 06/26/23 Unknown Rx metoprolol succinate 50 mg 50 mg PO DAILY #90 tabs 09/22/23 Unknown Rx tablet,extended release 24 hr atorvastatin 10 mg tablet 10 mg PO QHS 10/09/23 Unknown History clopidogrel 75 mg tablet See Rx Instructions .Route 04/03/24 Unknown Rx .COMPLEX #90 tabs Allergy/AdvReac Type Severity Reaction Status Date / Time losartan (From Cozaar) Allergy Other Verified 04/05/24 03:03 niacin Allergy Hives Verified 04/05/24 03:03 sacubitril (From Entresto) Allergy felt bad Verified 04/05/24 03:03 valsartan (From Entresto) Allergy felt bad Verified 04/05/24 03:03 Family History Mother Heart disease Diabetes Father Heart disease Surgical History History of left heart catheterization (12/05/14) History of right and left heart catheterization (07/11/17) History of coronary artery stent placement (09/11/16) History of appendectomy Biventricular ICD (implantable cardioverter-defibrillator) in place (02/06/20) Social History Smoking Status: Former smoker how long ago did patient quit smokin + years alcohol intake: current alcohol intake frequency: holidays/special occasions only substance use type: does not use caffeine: Yes Type: carbonated beverages, coffee and tea ROS ROS ED Constitutional Constitutional ED: Denies chills or fever(s) Eyes Eyes: Denies change in vision or discharge from eye(s) ENT ENT ED: Denies discharge from eye(s), rhinorrhea or sore throat Cardiovascular Cardiovascular: Reports chest pain; Denies palpitations Respiratory/Chest Respiratory/Chest: Reports dyspnea; Denies cough Gastrointestinal Gastrointestinal: Denies abdominal pain, nausea or vomiting Genitourinary Genitourinary ED: Denies dysuria Musculoskeletal Musculoskeletal: Denies back pain or extremity pain Integumentary Denies Abrasions or rash Neurologic Neurologic: Denies headache(s) or weakness Psychiatric Psychiatric: Denies anxiety or depression Allergic/Immunologic Allergic/Immunologic ED: Denies lip swelling or urticaria EXAM Physical Exam Const Vital Signs: 04/05/24 03:00 04/05/24 03:00 04/05/24 04:58 Temperature 97.8 F Temperature Source Temporal Pulse Rate 71 Respiratory Rate 18 Respiratory Effort Normal Non-Labored Respiratory Depth Normal Respiratory Pattern Normal Blood Pressure 103/85 H Blood Pressure Mean 91 Pulse Ox 97 85 Oxygen Delivery Method Room Air Room Air Oxygen Flow Rate (L/min) 04/05/24 04:58 04/05/24 06:00 Temperature Temperature Source Pulse Rate 70 Respiratory Rate 18 Respiratory Effort Respiratory Depth Respiratory Pattern Blood Pressure 97/79 Blood Pressure Mean 85 Pulse Ox 95 97 Oxygen Delivery Method Nasal Cannula Nasal Cannula Oxygen Flow Rate (L/min) 2 2 Positive well nourished and well developed General Appearance ED: well developed HEENT Reports dry mucous membranes Mouth ED: Yes dry mucous membranes Mouth: dry mucous membranes Eyes EOMs intact bilaterally Chest Wall inspection of chest normal and palpation of chest normal Resp normal respiratory effort and clear to auscultation bilaterally Cardio regular rate and regular rhythm GI non-tender Palpation: soft Extremity normal to inspection Neuro oriented x3 Neuro Narrative: No focal neurologic deficit. Psych mental status grossly normal Skin no rashes or lesions noted MDM MDM MDM Narrative Medical decision making narrative: With patient having significant dyspnea on exertion, I am concerned about a possible anginal equivalent. He is also having occasional sharp left-sided chest pain that he is taking nitroglycerin for more frequently. Patient is placed on property assessment monitor. IV line is initiated. Patient had some blood work drawn yesterday in anticipation of an upcoming doctor's appointment. He is noted to have worsened renal function when compared to prior. I will start him on gentle IV fluids. Labwork obtained to evaluate for leukocytosis, anemia, and electrolyte derangement. EKG obtained to evaluate for cardiac arrhythmia/ischemia. Chest x-ray obtained to evaluate for acute lung pathology, cardiac size, or mediastinal abnormality. Patient be given Zofran for nausea and will be given aspirin as he has not yet taken his dose today. History & Record Review Discussion w/independent historian: Patient Additional record(s) reviewed:: Prior outpatient record and Prior labs Lab Data Attestation: I reviewed the patient's lab results. Labs: Laboratory Results - last 24 hr 04/05/24 04/05/24 04/05/24 02:55 05:03 05:24 WBC 7.4 RBC 6.62 H Hgb 20.0 H* Hct 61.2 H MCV 92.4 MCH 30.2 MCHC 32.7 RDW Std Deviation 52.1 H RDW Coeff of Behzad 16.9 H Plt Count 149 L MPV 12.2 H Immature Gran % (Auto) 0.300 Neut % (Auto) 67.1 Lymph % (Auto) 22.4 [place] % (Auto) 9.6 Eos % (Auto) 0.3 Baso % (Auto) 0.3 Absolute Neuts (auto) 4.9 Absolute Lymphs (auto) 1.65 Nucleated RBC % 0 Diff Path Review March D-Dimer Quant (PE/DVT) Cancelled 4.15 H* Sodium 135 L Potassium 4.3 Chloride 100 Carbon Dioxide 23.0 Anion Gap 12 BUN 55 H Creatinine 2.06 H Estim Creat Clear Calc 41.51 Est GFR (MDRD) Af Amer 41 L Est GFR (MDRD) Non-Af 34 L BUN/Creatinine Ratio 26.7 H Glucose 119 H Calcium 9.9 Troponin I High Sens 26 21 B-Natriuretic Peptide 1513.3 H Radiography Chest X-Ray - ED: 1 View, Read by ED Physician and Chronic Changes Diagnostic Testing: Clinical Impression(s) from Imaging Studies Chest X-Ray 04/05/24 03:17 IMPRESSION: Minimal retrocardiac infiltrates due to atelectasis and possible minimal pneumonia. Minimal left pleural effusion. No evidence for pulmonary edema. Electronically Signed: Mike Nelson MD at 4:26 EDT , EKG Initial EKG: Attestation: I personally reviewed and interpreted this EKG as follows: Interpretation: - (Paced rhythm at 70 bpm. No obvious ischemia.) Treatment and Re-Evaluation :: CBC was a white count of 7.4 with normal differential. Hemoglobin is concentrated at 20. His hemoglobin is normal in the 17-18 range. Chemistry studies significant for a BUN of 55 and a creatinine of 2.06. Patient's creatinine in September 2023 was 1.09. Labs drawn yesterday indicated a creatinine of 1.79. Initial troponin is 26 with a 2-hour repeat troponin of 21. BNP is 1513. D-dimer is elevated at 4.15. There was difficulty in obtaining the patient's D-dimer. Given his high hemoglobin level, a special tube had to be used to dilute the blood to run the D-dimer. I was notified by staff in the lab that there was some early clotting noted in the sample, but they do believe that the D-dimer was accurate. EKG is paced rhythm at 70 bpm. No obvious ischemia. Portable chest x-ray per my interpretation reveals chronic changes. Pacer in place. Radiology interpretation reviewed. They do feel patient has some infiltrate likely secondary to atelectasis. No evidence of pulmonary edema. Unfortunately, patient's GFR is only 34 and not suitable for a CTA of the chest. He has had dyspnea, especially with exertion and had blood-tinged sputum with cough yesterday. In light of this I will give him a dose of Lovenox. In talking with the patient further, he does note that in the last 3 months he has lost interest in food. He believes he has lost approximately 35 pounds in the last 3 months. He has been trying to drink, but does admit he is not drinking like he should. I had initially turned the IV fluids off when his BNP returned elevated, however he does not have evidence of pulmonary edema and does have evidence of worsening renal function. Fluids were restarted at 100 an hour for gentle hydration. Patient also notes that over the past 3 months he has completely eliminated his blood pressure medication and his blood pressures have still been running low. I do feel patient will require hospitalization for probable V/Q test and hydration to try to improve renal function. I do still have concern for possible anginal equivalent with his dyspnea and he will need further cardiac testing as well. I will speak with the hospitalist regarding admission. Discharge Plan Dx/Rx/DC Orders Clinical Impression: Dyspnea on exertion, Acute kidney injury, D-dimer, elevated Disposition Disposition: Acute Care Hospital [facility]
[2024-04-05] MEDS: 0.9% Normal Saline (1000mL) 1,000 ML 150 ML IV (03:30)
[2024-04-05] MEDS: Ondansetron 4 MG/2 ML Vial IV (03:31)
[2024-04-05] MEDS: Aspirin 81 MG TAB.CHEW 324 MG PO (03:31)
[2024-04-05 03:32] LABS: Absolute Lymphocyte Count 1.65 X10^3/uL (0.83-4.51); Absolute Neutrophil Count 4.9 X10^3/uL (2.0-7.7); Basophil# 0.02 X10^3/uL; Basophil% 0.3 % (0-1); Eosinophil# 0.02 X10^3/uL; Eosinophils% 0.3 % (0-5); Lymphocyte # 1.65 X10^3/ul (0.83-4.51); Lymphocyte % 22.4 % (19-41); Mean Corp Hgb Conc 32.7 g/dL (32-36); Mean Corpuscular Hgb 30.2 pg (27.0-32.0); Mean Corpuscular Volume 92.4 fL (80-94); Mean Platelet Vol. 12.2 fl (6.2-12.0); Monocyte# 0.71 X10^3/uL; Monocyte% 9.6 % (0-10); NRBC Flagged by Analyzer 0 % (0-5); Neutrophil # 4.94 X10^3/uL (2.7-7.7); Neutrophil % 67.1 % (47-70); Platelet Count 149 K/mm3 (150-450); RBC Distribution Width CV 16.9 % (11.6-14.6); RBC Distribution Width SD 52.1 fl (35.1-43.9); Red Blood Count 6.62 M/mm3 (4.6-6.2); White Blood Count 7.4 K/mm3 (4.4-11.0)
[2024-04-05 03:33] LABS: Hematocrit 61.2 % (40-54)
[2024-04-05 03:35] LABS: Differential Indicated SCAN CRITERIA MET
[2024-04-05 03:47] LABS: Anion Gap 12 (5-15); BUN 55 mg/dL (7-18); BUN/Creat Ratio 26.7 RATIO (10-20); Calcium,Total 9.9 mg/dL (8.5-10.1); Chloride 100 mmol/L (98-107); Creatinine, Serum 2.06 mg/dL (0.70-1.30); EST Glomerular Filtration Rate 34 mL/min (>60); Est Glom Filt Rate - Afr Amer 41 mL/min (>60); Estimated Creatinine Clearance 41.51 ml/min; Glucose 119 mg/dL (74-106); Potassium 4.3 mmol/L (3.5-5.1); Sodium Level 135 mmol/L (136-145); Troponin-I HS (w/2H Reflex) 26 pg/mL (3.0-78.0)
[2024-04-05 04:19] LABS: BNP,B-Type NATRIURETIC PEPTIDE 1513.3 pg/mL (0-100)
[2024-04-05 05:21] LABS: Reflex Troponin-HS? (from REC) Y
[2024-04-05 05:29] LABS: D-Dimer Quantitative (DVT/PE) 4.15 FEU/ug/m (0.27-0.49)
[2024-04-05 06:10] LABS: Troponin-I HS 21 pg/mL (3.0-78.0)
[2024-04-05] MEDS: Enoxaparin 100 MG/ML Syringe SC (06:44)
--- NOTE | 2024-04-05 08:06 | ECHOCS_ITS ---
Reason For Study: CHF Procedure This was a 2D Doppler, Color Flow transthoracic echocardiogram. Contrast injection was performed. Exam performed portable in patient room. Left Ventricle Severely dilated left ventricle. The estimated ejection fraction is 10-15 %. Stage 1 diastolic dysfunction. There is severe global hypokinesis of the left ventricle. Right Ventricle Normal RV size. ICD or pacer leads identified within the right ventricle. Normal systolic function. Atria The left atrium is moderately enlarged. The right atrium is mildly enlarged. ICD or pacer leads identified within the right atrium. No doppler evidence for ASD. Mitral Valve There is no mitral valve stenosis. Moderately severe (3+) mitral valve insufficiency. Tricuspid Valve There is no tricuspid stenosis. Trivial tricuspid valve insufficiency. Pulmonary artery systolic pressure is 25 mmHg. Aortic Valve Trisinus/trileaflet aortic valve. There is no aortic stenosis. Mild (1+) aortic valve insufficiency. Pulmonic Valve There is no pulmonic valvular stenosis. No pulmonic valve insufficiency. Great Vessels Normal aortic root. Pericardium/Pleural No pericardial effusion. Medication Diluted definity 4ml given slow IV push to enhance endocardial definition. MMode/2D Measurements & Calculations LVIDd: 8.2 cm IVSd: 0.94 cm LVOT diam: 2.2 cm LVIDs: 7.9 cm LVPWd: 0.95 cm RVDd: 6.0 cm FS: 3.8 % LVOT area: 3.7 cm2 Ao root diam: 3.8 cm LAV(MOD-bp): 130.3 ml LA A4 area: 29.7 cm2 LAV(MOD-bp) Indexed: 57.9 ml/m2 LAV(MOD-sp2): 149.9 ml LAV(MOD-sp4): 104.6 ml LA dimension(2D): 5.7 cm TAPSE: 1.7 cm RA A4 area: 33.3 cm2 Time Measurements MV dec time: 0.15 sec Doppler Measurements & Calculations MV E max robert: 60.6 cm/sec Lat Peak E' Robert: 6.7 cm/sec Med Peak E' Robert: 3.6 cm/sec MV A max orbert: 30.5 cm/sec E/E' lat: 9.1 E/E' med: 16.8 MV E/A: 2.0 MV dec slope: 400.5 cm/sec2 Ao V2 max: 59.5 cm/sec LV V1 max: 45.4 cm/sec Ao max P.4 mmHg LV V1 max P.83 mmHg Ao V2 mean: 42.7 cm/sec LV V1 mean P.45 mmHg Ao mean P.80 mmHg LV V1 mean: 32.1 cm/sec Ao V2 VTI: 8.8 cm LV V1 VTI: 6.4 cm AV (velocity ratio): 0.73 NANCY(I,D): 2.7 cm2 NANCY(V,D): 2.8 cm2 SV(LVOT): 23.8 ml PA V2 max: 46.2 cm/sec PI end-d robert: 100.5 cm/sec TR max robert: 198.7 cm/sec TR max P.8 mmHg ECHO/Echo Complete W/ Contrast Interpretation Summary Severely dilated left ventricle. The estimated ejection fraction is 10-15 %. There is severe global hypokinesis of the left ventricle. Stage 1 diastolic dysfunction. The left atrium is moderately enlarged. The right atrium is mildly enlarged. Moderately severe (3+) mitral valve insufficiency. Mild (1+) aortic valve insufficiency. Ordering Physician: Ector Perea Referring Physician: Alexx David Performed By: Tara Tran, RDCS, RVT
--- NOTE | 2024-04-05 08:40 | PCM.HP.STD ---
HPI - General General Date of Admission: 04/05/24 Date of Service: 04/05/24 Chief Complaint: Shortness of breath HPI Narrative WELLINGTON AGUILAR, is a 68 M who presents to the emergency room at [facility] with complaints of shortness of breath. Patient has a history of ischemic cardiomyopathy and has an ICD in place. His last echocardiogram showed an ejection fraction of approximately 25%. Patient stated that for the last 3 months he has been short of breath, he had mention it to his PCP but no workup had been instituted. Patient stated today when he was walking around his home he became very short of breath and came in for evaluation. Patient denies any fevers or chills, he states that for the last 3 months he has lost approximately 35 pounds due to the fact that he does not want to eat and when he tries to eat he feels as if he might throw up. Workup in the emergency room included labs which showed a normal white blood cell count, hemoglobin was elevated at 20, chemistry studies showed a BUN of 55 and a creatinine of 2.06, patient's beta nitric peptide is elevated at 1513, D-dimer was ordered but due to the high hemoglobin, the lab does not believe the D-dimer was accurate. EKG showed a paced rhythm at 70, chest x-ray reveals minimal retrocardiac infiltrates due to atelectasis or possible minimal pneumonia, there is a minimal left pleural effusion noted. Patient requires 2 L of oxygen via nasal cannula to maintain his pulse ox above 90%. I feel the most likely explanation for the patient's dyspnea would be CHF. Patient will be admitted to PCU, he will be placed on IV Lasix and labs will be monitored. Patient will be seen by hematology regarding his elevated hemoglobin, patient may need further workup regarding his weight loss. Echocardiogram will be obtained. [facility] Medical History Myalgia Obesity Atherosclerotic heart disease of [place] coronary artery without angina pectoris Ischemic cardiomyopathy LBBB (left bundle branch block) Essential (primary) hypertension HLD (hyperlipidemia) COPD (chronic obstructive pulmonary disease) Home Medications ?Medication ?Instructions ?Recorded ?Last Taken ?Type aspirin 81 mg tablet,delayed 81 mg PO DAILY 12/27/19 Unknown History release allopurinol 300 mg tablet 300 mg PO DAILY 05/25/22 Unknown History spironolactone 25 mg tablet 12.5 mg (1/2 x 25 mg) PO DAILY #45 11/30/22 Unknown Rx tabs nitroglycerin 0.4 mg sublingual 0.4 mg sublingual Q5-15M PRN chest 06/01/23 04/04/24 Rx tablet pain #25 tabs amiodarone 200 mg tablet 200 mg PO DAILY #90 tabs 06/26/23 Unknown Rx metoprolol succinate 50 mg 50 mg PO DAILY #90 tabs 09/22/23 Unknown Rx tablet,extended release 24 hr atorvastatin 10 mg tablet 10 mg PO QHS 10/09/23 Unknown History clopidogrel 75 mg tablet See Rx Instructions .Route 04/03/24 Unknown Rx .COMPLEX #90 tabs Allergy/AdvReac Type Severity Reaction Status Date / Time losartan (From Cozaar) Allergy Other Verified 04/05/24 03:03 niacin Allergy Hives Verified 04/05/24 03:03 sacubitril (From Entresto) Allergy felt bad Verified 04/05/24 03:03 valsartan (From Entresto) Allergy felt bad Verified 04/05/24 03:03 Family History Mother Heart disease Diabetes Father Heart disease Surgical History History of left heart catheterization (12/05/14) History of right and left heart catheterization (07/11/17) History of coronary artery stent placement (09/11/16) History of appendectomy Biventricular ICD (implantable cardioverter-defibrillator) in place (02/06/20) Social History Smoking Status: Former smoker how long ago did patient quit smokin + years alcohol intake: current alcohol intake frequency: holidays/special occasions only substance use type: does not use caffeine: Yes Type: carbonated beverages, coffee and tea ROS Constitutional Constitutional: Reports fatigue and weakness; Denies anorexia, change in weight, chills, fever(s) or night sweats Eyes Eyes: Denies blurry vision, change in vision, discharge from eye(s) or eye pain Cardiovascular Cardiovascular: Reports dyspnea on exertion; Denies chest pain, claudication, edema or palpitations Respiratory/Chest Respiratory/Chest: Reports dyspnea, shortness of breath at rest and shortness of breath with exertion; Denies cough or hemoptysis Gastrointestinal Gastrointestinal: Reports nausea and other Details: Weight loss ; Denies abdominal pain, constipation, diarrhea, hematemesis, hematochezia, melena or vomiting Genitourinary Genitourinary: Denies dysuria, hematuria, urinary frequency, urinary hesitancy, urinary incontinence or urinary urgency Musculoskeletal Musculoskeletal: Denies back pain, joint pain, joint stiffness, joint swelling, myalgias or neck pain Neurologic Neurologic: Denies abnormal gait, abnormal speech, dizziness, focal weakness, headache(s), loss of vision, numbness, other visual disturbances, paresthesias, syncope or tingling Psychiatric Psychiatric: Denies anxiety, cognitive impairment, depression, irritability, mood swings or suicidal ideation Endocrine Endocrinology: Denies change in body appearance, cold intolerance, excessive sweating, heat intolerance, polydipsia or polyuria Hematologic/Lymphatic Hematologic/Lymphatic: Denies none, anemia, easy bleeding, easy bruising or lymphadenopathy Allergic/Immunologic Allergic/Immunologic: Denies rhinitis, urticaria, eczemia or asthma Vital Signs Vital Signs Vital Signs: 04/05/24 03:00 04/05/24 03:00 04/05/24 04:58 Temperature 97.8 F Temperature Source Temporal Pulse Rate 71 Respiratory Rate 18 Respiratory Effort Normal Non-Labored Respiratory Depth Normal Respiratory Pattern Normal Blood Pressure 103/85 H Blood Pressure Mean 91 Blood Pressure Source Blood Pressure Position Blood Pressure Location Pulse Ox 97 85 Oxygen Delivery Method Room Air Room Air Oxygen Flow Rate (L/min) 04/05/24 04:58 04/05/24 06:00 04/05/24 07:16 Temperature 98 F Temperature Source Pulse Rate 70 70 Respiratory Rate 18 16 Respiratory Effort Respiratory Depth Respiratory Pattern Blood Pressure 97/79 96/80 Blood Pressure Mean 85 85 Blood Pressure Source Blood Pressure Position Blood Pressure Location Pulse Ox 95 97 98 Oxygen Delivery Method Nasal Cannula Nasal Cannula Oxygen Flow Rate (L/min) 2 2 04/05/24 08:15 Temperature 97.4 F L Temperature Source Axillary Pulse Rate 70 Respiratory Rate 18 Respiratory Effort Respiratory Depth Respiratory Pattern Blood Pressure 97/78 Blood Pressure Mean 84 Blood Pressure Source Monitor Blood Pressure Position Semi-Fowlers Blood Pressure Location Left Arm Pulse Ox 100 Oxygen Delivery Method Room Air Oxygen Flow Rate (L/min) 2 Weight Weight: 102.194 kg Body Mass Index (BMI) 30.5 Physical Exam Const alert, oriented x3 and no apparent distress General Appearance: cooperative, well kempt and well developed Orientation / Consciousness: awake, oriented to person, oriented to place and oriented to time HEENT normocephalic, head/scalp atraumatic, hearing grossly normal bilaterally and moist oral mucous membranes Eyes PERRL, EOMs intact bilaterally and conjunctivae normal Neck supple, no JVD, thyroid normal and no carotid bruits General: trachea midline Resp normal respiratory effort, no retractions and no use of accessory muscles Resp Narrative: Inspiratory rales are noted at the bases bilaterally Auscultation: Negative for rales, rhonchi or wheezes Cardio regular rate, regular rhythm, S1 normal heart sound, S2 normal heart sound, no murmurs, no rub and no gallops Cardio Narrative: Rhythm is paced GI normal to inspection, nondistended, normoactive bowel sounds, soft to palpation, non-tender and non-distended Extremity no clubbing, cyanosis or edema Skin no rashes or lesions noted General Skin Exam: no breakdown Neuro oriented x3, CN's II-XII intact bilaterally, moves all extremities, no focal motor deficits and no sensory deficits noted Sensorium / Orientation: awake and alert Speech: speech normal Psych affect normal Results Lab / Micro Data 04/05/24 02:55 04/05/24 02:55 Labs: Laboratory Results - last 24 hr 04/05/24 02:55: WBC 7.4, RBC 6.62 H, Hgb 20.0 H*, Hct 61.2 H, MCV 92.4, MCH 30.2, MCHC 32.7, RDW Std Deviation 52.1 H, RDW Coeff of Behzad 16.9 H, Plt Count 149 L, MPV 12.2 H, Immature Gran % (Auto) 0.300, Neut % (Auto) 67.1, Lymph % (Auto) 22.4, [place] % (Auto) 9.6, Eos % (Auto) 0.3, Baso % (Auto) 0.3, Absolute Neuts (auto) 4.9, Absolute Lymphs (auto) 1.65, Nucleated RBC % 0, Diff Path Review May foll, D-Dimer Quant (PE/DVT) Cancelled, Sodium 135 L, Potassium 4.3, Chloride 100, Carbon Dioxide 23.0, Anion Gap 12, BUN 55 H, Creatinine 2.06 H, Estim Creat Clear Calc 41.51, Est GFR (MDRD) Af Amer 41 L, Est GFR (MDRD) Non-Af 34 L, BUN/Creatinine Ratio 26.7 H, Glucose 119 H, Calcium 9.9, Troponin I High Sens 26, B-Natriuretic Peptide 1513.3 H 04/05/24 05:03: D-Dimer Quant (PE/DVT) 4.15 H* 04/05/24 05:24: Troponin I High Sens 21 Imaging Radiology Impression Chest X-Ray 04/05/24 03:17 IMPRESSION: Minimal retrocardiac infiltrates due to atelectasis and possible minimal pneumonia. Minimal left pleural effusion. No evidence for pulmonary edema. Electronically Signed: Mike Nelson MD at 4:26 EDT , Assessment & Plan Assessment/Plan (1) Dyspnea on exertion: PLAN: Plan 1. Acute on chronic systolic congestive heart failure-patient will be admitted to PCU, I have placed him on Lasix 20 mg IV every 8 hours, he will remain on his home medications, labs will be monitored. Patient will have an echocardiogram #2 hypoxia secondary to #1-patient's pulse ox will be monitored #3 ischemic cardiomyopathy-complicates care, management, recovery, and prognosis #4 unexplained weight loss-possible cardiac cachexia-I will order an upper GI with esophagram today to rule out any gross pathology #5 polycythemia-exact cause unclear, I will have hematology see the patient in consultation #6 essential hypertension-patient's blood pressure medications were recently reduced due to his hypotension, patient will remain on a beta-ky at this time #7 hypothyroidism-patient is on Synthroid, patient's TSH was 10.8 on 04/04/2024, I will order T3 and T4 levels #8 hyperlipidemia-patient is on atorvastatin #9 coronary artery disease-patient remains on aspirin and Plavix Total clinical time spent by myself addressing the patient's medical issues, reviewing all of his data, and collaborating with patient's care team: 75 minutes Charges/Coding Visit Charges Inpatient E&M: 83208 Init Hosp L3
--- NOTE | 2024-04-05 08:57 | RAD_ITS ---
STUDY: AIR CONTRAST ESOPHAGRAM AND UPPER GI SERIES REASON FOR EXAM: Male, 68 years old. Weight loss, swallowing difficulty FLUOROSCOPY TIME (if supplied): (34 seconds) minutes/seconds. 32 mGy. TECHNIQUE: SINGLE CONTRAST AND AIR CONTRAST FLUOROSCOPIC IMAGES. COMPARISON: None. FINDINGS: The cervical esophagus demonstrates normal motility without aspiration. There is no stricture or extrinsic mass effect. No intraluminal polypoid mass is identified. The thoracic esophagus distends well without stricture or mucosal fold thickening. No mucosal ulcerations are identified. There is no extrinsic mass effect. There are no diverticula. The patient ingested a 12 mm tablet of barium without any difficulty. No hiatal hernia or gastroesophageal reflux was identified. The stomach distends well without mucosal fold thickening or mucosal ulceration. There is no intraluminal mass. The duodenal bulb is freely distensible without deformity or ulceration. The duodenal sweep is normal in position and caliber. RAD/Upper GI w/BA Swallow IMPRESSION: Normal air-contrast esophagram and upper GI series. Electronically Signed: Gopal Aguilar MD at 10:29 EDT ,
[2024-04-05 10:06] LABS: T4 Total, Thyroxin 9.9 ug/dL (4.5-12.1)
[2024-04-05] MEDS: Allopurinol 300 MG Tablet PO (10:41)
[2024-04-05] MEDS: Clopidogrel Bisulfate 75 MG Tablet PO (10:41)
[2024-04-05] MEDS: Spironolactone 25 MG Tablet 12.5 MG PO (10:42)
--- NOTE | 2024-04-05 10:55 | CASEMGMT ---
RN CM Face to Face with patient for initial transition planning/care coordination assessment. RN CM introduced self and role at [facility]. Patient lying in bed, alert and oriented. Patient willing to participate in assessment and is able to answer all questions appropriately. Care providers, pharmacy, and demographics verified. PCP: Joann Specialists: Brayan Cohn Pharmacy: [facility] Insurance: [facility], Transfer To Prescription Benefit: yes Living Will/HPOA: none LNOK: daughter Living Arrangements: Patient lives alone in a single story condo with 1 step to enter. Patient is independent at home. Transportation: self, friends DME/HHC: Patient denies DME in the home. No previous HHC or SNF. Will monitor for oxygen and walker at discharge, prefers [employer] Patient wishes to discharge home, will monitor progress with therapy. Patient states he has no further needs or concerns at this time. CM to follow for discharge planning needs that may arise. Disposition Plan: Patient to discharge home with family support and follow-up plans in place. Mallorie KEY, RN, CM
[2024-04-05] MEDS: Potassium Chloride Oral Tablet 20 MEQ PO ×2 (11:49→17:10)
[2024-04-05] MEDS: Metoprolol(XL)Succ 50 MG Tablet PO (11:51)
[2024-04-05] MEDS: Amiodarone 200 MG Tablet PO (11:51)
[2024-04-05 11:57] LABS: Pathologist Review Reviewed
[2024-04-05 13:21] LABS: T3 Total - Triiodothyronine 0.52 ng/mL (0.6-1.81)
[2024-04-05] MEDS: Furosemide 20 MG/2 ML VIAL IV ×2 (13:28→21:50)
[2024-04-05] MEDS: 0.9% Saline Lock 10 ML Syringe IV (13:28)
--- NOTE | 2024-04-05 15:28 | CHAPLAIN ---
Type of Pastoral Visit _x__ Initial Visit ___ Follow-up Visit ___ On-call Visit ___ General Patient Visit ___ Spiritual Assessment ___ Family Conference ___ Bereavement ___ Rapid Response ___ Code Blue ___ Other (describe below) Pastoral Care Referral From _x__ Patient ___ Family ___ Nurse ___ Physician ___ Biomaterials Engineer ___ Motor Home Electrical Foreman ___ Other (describe below) Sacrament/Intervention _x__ Active listening ___ Anointing ___ Cheondoism ___ Bereavement ___ Communion _x__ Yodit exploration ___ _x__ Life review _x__ Prayer ___ Reconciliation ___ Sacrament of Sick _x__ Supportive presence ___ Wedding ___ Other (describe below) Pastoral Comments patient appeared to be sleeping but awoke as this service manager was leaving a card for him; pt is offered presence and support; pt wants to know how deep do you want to go; pt is encouraged to be open and he expresses I nearly 10 years ago and I have extra time and but now I have more questions than I have answers; pt relates some of his discouragements in life; focus becomes on how he handles those situations and if his yodit in God is meaningful and helpful to him; pt welcomes support through someone to talk with and prayer being spoken
[2024-04-05] MEDS: Lactulose 20 GM/30 ML UDC 30 GM PO (17:09)
[2024-04-05] MEDS: Ensure Plus High Protein 120 ML LIQUID PO (17:09)
[2024-04-05] MEDS: Heparin Injection (Vial) 5,000 UNIT/ML VIAL 5000 UNIT SC (21:48)
[2024-04-05] MEDS: Atorvastatin Calcium 10 MG Tablet PO (21:49)
[2024-04-06] VITALS (9 sets, daily range): BP systolic 75–101; BP diastolic 52–79; PULSE 66–88; RESP 15–18; TEMP 35.6–35.9; O2SAT 97–99; BMI 30.6
[2024-04-06] MEDS: Ondansetron 4 MG/2 ML Vial IV (00:07)
[2024-04-06] MEDS: proCHLORPERazine 10 MG/2 ML Vial 5 MG IV (05:03)
[2024-04-06] MEDS: Furosemide 20 MG/2 ML VIAL IV (05:03)
[2024-04-06] MEDS: Potassium Chloride Oral Tablet 20 MEQ PO (07:52)
[2024-04-06] MEDS: Aspirin E.C. 81 MG Tablet PO (07:52)
[2024-04-06 08:50] LABS: Absolute Lymphocyte Count 1.08 X10^3/uL (0.83-4.51); Absolute Neutrophil Count 6.2 X10^3/uL (2.0-7.7); Basophil# 0.02 X10^3/uL; Basophil% 0.3 % (0-1); Hemoglobin 19.3 g/dL (13.0-16.5); Lymphocyte # 1.08 X10^3/ul (0.83-4.51); Lymphocyte % 13.6 % (19-41); Mean Corp Hgb Conc 31.7 g/dL (32-36); Mean Corpuscular Volume 94.4 fL (80-94); Mean Platelet Vol. 12.5 fl (6.2-12.0); Monocyte# 0.63 X10^3/uL; Monocyte% 7.9 % (0-10); NRBC Flagged by Analyzer 0 % (0-5); Neutrophil # 6.17 X10^3/uL (2.7-7.7); Neutrophil % 77.7 % (47-70); Platelet Count 146 K/mm3 (150-450); RBC Distribution Width CV 16.3 % (11.6-14.6); RBC Distribution Width SD 53.8 fl (35.1-43.9); Red Blood Count 6.44 M/mm3 (4.6-6.2); White Blood Count 7.9 K/mm3 (4.4-11.0)
[2024-04-06 08:55] LABS: Hematocrit 60.8 % (40-54)
[2024-04-06 09:26] LABS: Anion Gap 11 (5-15); BUN 64 mg/dL (7-18); BUN/Creat Ratio 19.6 RATIO (10-20); Chloride 101 mmol/L (98-107); Creatinine, Serum 3.26 mg/dL (0.70-1.30); EST Glomerular Filtration Rate 20 mL/min (>60); Est Glom Filt Rate - Afr Amer 24 mL/min (>60); Estimated Creatinine Clearance 26.11 ml/min; Glucose 136 mg/dL (74-106); Potassium 4.9 mmol/L (3.5-5.1); Sodium Level 134 mmol/L (136-145)
--- NOTE | 2024-04-06 09:27 | CON.PCM.ON_ITS ---
Assessment & Plan Assessment/Plan (1) Polycythemia: Status: Acute Code(s): D75.1 - Secondary polycythemia Plan: Chronic. Known to patient for 30 years. Suspect secondary to chronic hypoxia. Request EPO level reticulocyte count. (2) D-dimer, elevated: Status: Acute Code(s): R79.89 - Other specified abnormal findings of blood chemistry Plan: Elevated D-dimer concurrent with subjective reports of hemoptysis. CTA chest cannot be performed due to renal dysfunction at this time. Consider VQ scan. (3) Weight loss, unintentional: Status: Acute Code(s): R63.4 - Abnormal weight loss Plan: May be secondary to worsening cardiac dysfunction as evidenced by an EF 10 to 15%. In the setting of also an elevated D-dimer and abnormal LFTs (based on labs obtained 04/04/2024 in the outpatient setting ordered by his PCP) CT chest and abdomen recommended. It was explained to the patient that images may be subop timal given we are not able to use IV contrast. He is agreeable for CT chest and abdomen without contrast. (4) Total bilirubin, elevated: Status: Acute Code(s): R17 - Unspecified jaundice Plan: Repeat LFTs, request direct bili, coags and GGT. HPI Consult Data Date of Service:: 04/08/24 PCP / Referring Provider: Dr. Alexx David MD Attending: Dr. Ector Perea DO Chief Complaint Chief Complaint: Polycythemia History of Present Illness History of Present Illness: Mr. Lyndon Pickett is a very pleasant 68-year-old gentleman with a past medical history significant for obesity, hypertension, hyperlipidemia, and ischemic cardiomyopathy with an ICD in place who presented to [facility] emergency department on 04/05/2024 with complaints of exertional dyspnea x 3 months progressively worsening and acute episode of hemoptysis. Lab assessment was significant for hemoglobin 20, BUN 55/creatinine 2.06 baseline 1.09), D- dimer 4.15, BNP 1515. Chest x-ray showed minimal retrocardiac infiltrates due to Actal ectasis and possible minimal pneumonia. Minimal left pleural effusion. No evidence for pulmonary edema. Despite elevated D-dimer and subjective report of hemoptysis, CTA chest could not be performed due to renal dysfunction. Thus patient was given 1 dose of Lovenox in the emergency department. He was subsequently admitted for management of CHF and acute kidney injury. During intake H&P, patient also complained unexplained weight loss estimating 35 pounds in the last 3 months. An echo was performed 04/05/2024 shows EF estimated between 10 and 15% and severe global hypokinesis of the left ventricle.upper GI was completed 04/05/2024 and was reported as normal. A hematology consult was requested to address polycythemia. Interval History Interval History: Upon entering the room, the patient is sitting upright in bed. Patient has been aware of the polycythemia for 30 years. A sleep study has been recommended multiple times by his PCP, patient declined as he would not be interested in CPAP interventions. Describes loss of appetite as abrupt. Specifically denies headaches, night sweats, dysphagia, enlarged lymph nodes, nausea, vomiting, change in his bowel habits, melena hematochezia, swelling or pain of his extremities. SOB improved on supplemental O2. He is not in experiencing chest pain at this time Denies any oncologic past family medical history to include malignancy. Endorses [id number] history, quit smoking approximately 35 years ago. States PSAs checked routinely and has never been told PSA to be abnormal. Admits colonoscopy is not up-to-date. Describes sedentary lifestyle and he does not endorse much for social support. Advanced Directives Power of Overhead Worker: No Living Will: No [facility] Medical History (Updated 04/06/24 @ 14:[address] Pedersen Friend, DO) History of tobacco use Hemoptysis Total bilirubin, elevated Weight loss, unintentional Polycythemia Myalgia Obesity Atherosclerotic heart disease of [place] coronary artery without angina pectoris Ischemic cardiomyopathy LBBB (left bundle branch block) Essential (primary) hypertension HLD (hyperlipidemia) COPD (chronic obstructive pulmonary disease) Home Medications ?Medication ?Instructions ?Recorded ?Last Taken ?Type aspirin 81 mg tablet,delayed 81 mg PO DAILY 12/27/19 Unknown History release allopurinol 300 mg tablet 300 mg PO DAILY 05/25/22 Unknown History spironolactone 25 mg tablet 12.5 mg (1/2 x 25 mg) PO DAILY #45 11/30/22 Unknown Rx tabs nitroglycerin 0.4 mg sublingual 0.4 mg sublingual Q5-15M PRN chest 06/01/23 04/04/24 Rx tablet pain #25 tabs amiodarone 200 mg tablet 200 mg PO DAILY #90 tabs 06/26/23 Unknown Rx metoprolol succinate 50 mg 50 mg PO DAILY #90 tabs 09/22/23 Unknown Rx tablet,extended release 24 hr atorvastatin 10 mg tablet 10 mg PO QHS 10/09/23 Unknown History clopidogrel 75 mg tablet See Rx Instructions .Route 04/03/24 Unknown Rx .COMPLEX #90 tabs Allergy/AdvReac Type Severity Reaction Status Date / Time losartan (From Cozaar) Allergy Other Verified 04/05/24 03:03 niacin Allergy Hives Verified 04/05/24 03:03 sacubitril (From Entresto) Allergy felt bad Verified 04/05/24 03:03 valsartan (From Entresto) Allergy felt bad Verified 04/05/24 03:03 Family History Mother Heart disease Diabetes Father Heart disease Surgical History History of left heart catheterization (12/05/14) History of right and left heart catheterization (07/11/17) History of coronary artery stent placement (09/11/16) History of appendectomy Biventricular ICD (implantable cardioverter-defibrillator) in place (02/06/20) Social History Smoking Status: Former smoker how long ago did patient quit smokin + years alcohol intake: current alcohol intake frequency: holidays/special occasions only substance use type: does not use caffeine: Yes Type: carbonated beverages, coffee and tea ROS ROS Narrative Negative except as documented in the interval HPI Physical Exam Const alert, oriented x3 and no apparent distress General Appearance: cooperative HEENT normocephalic and head/scalp atraumatic Eyes conjunctivae normal and no scleral icterus Neck supple and thyroid normal General: trachea midline Lymph Lymphatic: no lymphadenopathy noted Resp normal respiratory effort Auscultation: Negative for rhonchi or wheezes Cardio regular rate, regular rhythm, S1 normal heart sound and S2 normal heart sound GI normal to inspection, nondistended, normoactive bowel sounds, soft to palpation, non-tender and non-distended GI Narrative: Hepatosplenomegaly difficult to discern due to large body habitus and central obesity Back/Spine no CVA tenderness Extremity no clubbing, cyanosis or edema Skin no rashes or lesions noted General Skin Exam: no breakdown Neuro oriented x3, CN's II-XII intact bilaterally and no focal motor deficits Speech: speech normal Psych affect normal Attitude: calm and engaged Attention / Concentration: attention grossly intact Vital Signs Temperature 96.2 F L 04/06/24 07:49 Temperature Source Temporal 04/06/24 07:49 Pulse Rate 68 04/06/24 07:49 Pulse Strength Normal (2+) 04/06/24 08:18 Respiratory Rate 16 04/06/24 07:49 Respiratory Effort Non-Labored 04/06/24 08:19 Respiratory Depth Normal 04/06/24 08:19 Respiratory Pattern Normal 04/06/24 08:19 Blood Pressure 96/77 04/06/24 07:49 Blood Pressure Mean 83 04/06/24 07:49 Blood Pressure Source Monitor 04/06/24 07:49 Blood Pressure Position Semi-Fowlers 04/06/24 07:49 Blood Pressure Location Left Arm 04/06/24 07:49 Pulse Ox 97 04/06/24 07:49 Oxygen Delivery Method Nasal Cannula 04/06/24 08:19 Oxygen Flow Rate (L/min) 2 04/06/24 08:19 Laboratory Results - last 24 hr 04/05/24 02:55: Diff Path Review Reviewed 04/05/24 05:24: Thyroxine (T4) 9.9 04/05/24 09:50: Total T3 0.52 L 04/06/24 08:24: WBC 7.9, RBC 6.44 H, Hgb 19.3 H*, Hct 60.8 H, MCV 94.4 H, MCH 30.0, MCHC 31.7 L, RDW Std Deviation 53.8 H, RDW Coeff of Behzad 16.3 H, Plt Count 146 L, MPV 12.5 H, Immature Gran % (Auto) 0.500, Neut % (Auto) 77.7 H, Lymph % (Auto) 13.6 L, [place] % (Auto) 7.9, Eos % (Auto) 0.0, Baso % (Auto) 0.3, Absolute Neuts (auto) 6.2, Absolute Lymphs (auto) 1.08, Nucleated RBC % 0, Diff Path Review May , Sodium 134 L, Potassium 4.9, Chloride 101, Carbon Dioxide 22.0, Anion Gap 11, BUN 64 H, Creatinine 3.26 H, Estim Creat Clear Calc 26.11, Est GFR (MDRD) Af Amer 24 L, Est GFR (MDRD) Non-Af 20 L, BUN/Creatinine Ratio 19.6, Glucose 136 H, Calcium 10.0 Diagnostic Data Chest X-Ray 04/05/24 03:17 IMPRESSION: Minimal retrocardiac infiltrates due to atelectasis and possible minimal pneumonia. Minimal left pleural effusion. No evidence for pulmonary edema. Electronically Signed: Mike Nelson MD at 4:26 EDT , Echocardiogram 04/05/24 08:06 Interpretation Summary Severely dilated left ventricle. The estimated ejection fraction is 10-15 %. There is severe global hypokinesis of the left ventricle. Stage 1 diastolic dysfunction. The left atrium is moderately enlarged. The right atrium is mildly enlarged. Moderately severe (3+) mitral valve insufficiency. Mild (1+) aortic valve insufficiency. Ordering Physician: Ector Perea Referring Physician: Alexx David Performed By: Tara Tran, RDCS, RVT Upper GI/Barium Swallow X-Ray 04/05/24 08:57 IMPRESSION: Normal air-contrast esophagram and upper GI series. Electronically Signed: Gopal Aguilar MD at 10:29 EDT ,
--- NOTE | 2024-04-06 09:45 | CT_ITS ---
We are attempting to reach an attending provider to discuss findings. An addendum with communication details will be sent when the communication is complete. HISTORY: unintentional weight loss, abnormal LFTs, hemoptysis. TECHNIQUE: Helically acquired images were obtained of the chest and abdomen without contrast. A radiation dose optimization technique was used for this scan. Coronal and sagittal reformatted images. 1332 images. COMPARISON: CR prior day. FINDINGS: LARGE AIRWAYS: Patent. LUNGS: Mild emphysema with peripheral reticular scarring. Mild dependent atelectasis in the right lower lobe and lingula. PLEURA: No pneumothorax or significant pleural effusion. HEART/PERICARDIUM: Moderate cardiomegaly with pacemaker. No significant coronary artery calcification. No pericardial effusion. VESSELS: Thoracic aorta nondilated. Atherosclerosis noted. MEDIASTINUM/LJ: Borderline enlarged precarinal lymph node, likely reactive. CHEST WALL: Mild gynecomastia. Right posterior sebaceous cyst. BOWEL: Artifact from residual barium. Bowel nondilated. Long segment of wall thickening and mild pericolonic stranding extending from the proximal ascending to proximal transverse colon with adjacent mesenteric venous air. PERITONEUM: Mild right upper and lower quadrant mesenteric venous gas identified, limiting evaluation for free air and no gross leakage of oral contrast into the peritoneum. Mild mesenteric edema and trace free fluid. LIVER: Moderate portal venous gas. GALLBLADDER: Multiple calcified gallstones. SPLEEN: Nonenlarged. PANCREAS: Atrophic. ADRENAL GLANDS: No nodules. KIDNEYS: No nephrolithiasis or hydronephrosis. BONES: Degenerative change. CT/CT Chest AND Abd W/O Contrast IMPRESSION: Moderate portal venous air, mild right upper and lower quadrant mesenteric venous gas, and long segment of proximal colonic wall thickening with surrounding inflammation concerning for ischemic colitis. Presence of mesenteric venous gas limits evaluation for mild free air. Cholelithiasis. Moderate cardiomegaly. Mild atelectasis and pulmonary emphysema. Presence of pulmonary emphysema on CT is an independent risk factor for lung cancer. Consider LDCT lung cancer screening in the future. Electronically Signed: Olya Barry MD at 11:04 EDT ,
[2024-04-06] MEDS: Amiodarone 200 MG Tablet PO (09:54)
[2024-04-06] MEDS: Spironolactone 25 MG Tablet 12.5 MG PO (09:54)
[2024-04-06] MEDS: Metoprolol(XL)Succ 50 MG Tablet PO (09:54)
[2024-04-06] MEDS: Clopidogrel Bisulfate 75 MG Tablet PO (09:55)
[2024-04-06 10:42] LABS: Platelet Count 141 K/mm3 (150-450); RET-HE 33.1 pg (30-35); Reticulocyte Count 1.64 % (0.5-1.5)
[2024-04-06 11:05] LABS: AST(SGOT) 245 U/L (15-37); Alanine Aminotransfer ALT/SGPT 201 U/L (16-61); Albumin, Serum 3.6 g/dL (3.2-5.0); Alkaline Phosphatase 249 U/L (45-117); Bilirubin, Direct 0.86 mg/dL (0.00-0.30); Bilirubin, Direct 0.87 mg/dL (0.00-0.30); GGTP 298 U/L (15-85); Globulin 3.3 g/dL (2.2-4.2); Protein, Total 6.9 g/dL (6.4-8.2)
[2024-04-06 12:21] LABS: International Normalized Ratio 1.5; Prothrombin Time (Protime)PT. 17.8 SECONDS (11.7-14.9)
[2024-04-06 12:22] LABS: D-Dimer Quantitative (DVT/PE) 3.48 FEU/ug/m (0.27-0.49); Partial Thromboplast Time 45.4 Seconds (24.1-36.2)
[2024-04-06] MEDS: Morphine 4 MG/ML Syringe IV (12:27)
[2024-04-06] MEDS: 0.9% Saline Lock 10 ML Syringe IV (12:27)
[2024-04-06] MEDS: Piperacil/Tazobactam 3.375 GM in 0.9% Normal Saline (50mL MB+) 50 ML IV ×2 (13:28→21:22)
--- NOTE | 2024-04-06 14:46 | EX.PCM.CON.G ---
HPI Consult Data Date of Consult: 04/06/24 HPI Narrative Reason for Consultation: Ischemic bowel HPI Narrative: WELLINGTON AGUILAR, is a 68 M who presents with intermittent shortness of breath on exertion. He states he first noticed this about 3 months ago. He was pushing his trash cans to the curb when he became very short of breath and was not sure he was on a get back in the house. Since that time he has noted shortness of breath on exertion. He will occasionally have left-sided chest pain and will take nitro, but it is not necessarily associated with exertion as the shortness of breath is. He does note a very rare cough and did note some blood-tinged sputum yesterday. This morning patient got short of breath walking in his home and called EMS. Patient does have known history of coronary artery disease with cardiac stent placement in 2007. He has an ICD and generator was most recently changed in 2019. It appears patient's last cardiac catheterization was in 2016 and his last stress test was in October 2022. He has a reduced EF of 25% noted on most recent echocardiogram from 2020. 68-year-old man with a history of ischemic cardiomyopathy. He says that he had previous stents placed approximately in 2007. In 2014, he had presented with a left bundle branch block, class II-III heart failure and ejection fraction less than 30%. A biventricular implantable cardioverter defibrillator was placed with a [employer]. He had previously been following up in [place] but for logistic reasons was being followed up here and had his ICD generator changed in 2019. His ICD was interrogated and he was noted to have 2 episodes of nonsustained ventricular tachycardia for which she had appropriate ATP pacing [facility] Medical History (Updated 04/06/24 @ 14:[address] Pedersen Friend, DO) History of tobacco use Hemoptysis Total bilirubin, elevated Weight loss, unintentional Polycythemia Myalgia Obesity Atherosclerotic heart disease of [place] coronary artery without angina pectoris Ischemic cardiomyopathy LBBB (left bundle branch block) Essential (primary) hypertension HLD (hyperlipidemia) COPD (chronic obstructive pulmonary disease) Home Medications ?Medication ?Instructions ?Recorded ?Last Taken ?Type aspirin 81 mg tablet,delayed 81 mg PO DAILY 12/27/19 Unknown History release allopurinol 300 mg tablet 300 mg PO DAILY 05/25/22 Unknown History spironolactone 25 mg tablet 12.5 mg (1/2 x 25 mg) PO DAILY #45 11/30/22 Unknown Rx tabs nitroglycerin 0.4 mg sublingual 0.4 mg sublingual Q5-15M PRN chest 06/01/23 04/04/24 Rx tablet pain #25 tabs amiodarone 200 mg tablet 200 mg PO DAILY #90 tabs 06/26/23 Unknown Rx metoprolol succinate 50 mg 50 mg PO DAILY #90 tabs 09/22/23 Unknown Rx tablet,extended release 24 hr atorvastatin 10 mg tablet 10 mg PO QHS 10/09/23 Unknown History clopidogrel 75 mg tablet See Rx Instructions .Route 04/03/24 Unknown Rx .COMPLEX #90 tabs Allergy/AdvReac Type Severity Reaction Status Date / Time losartan (From Cozaar) Allergy Other Verified 04/05/24 03:03 niacin Allergy Hives Verified 04/05/24 03:03 sacubitril (From Entresto) Allergy felt bad Verified 04/05/24 03:03 valsartan (From Entresto) Allergy felt bad Verified 04/05/24 03:03 Family History Mother Heart disease Diabetes Father Heart disease Surgical History History of left heart catheterization (12/05/14) History of right and left heart catheterization (07/11/17) History of coronary artery stent placement (09/11/16) History of appendectomy Biventricular ICD (implantable cardioverter-defibrillator) in place (02/06/20) Social History Smoking Status: Former smoker how long ago did patient quit smokin + years alcohol intake: current alcohol intake frequency: holidays/special occasions only substance use type: does not use caffeine: Yes Type: carbonated beverages, coffee and tea ROS Constitutional Constitutional: Reports fatigue and weakness; Denies anorexia, change in weight, chills, fever(s) or night sweats Eyes Eyes: Denies blurry vision, change in vision, discharge from eye(s) or eye pain Cardiovascular Cardiovascular: Reports dyspnea on exertion; Denies chest pain, claudication, edema or palpitations Respiratory/Chest Respiratory/Chest: Reports dyspnea, shortness of breath at rest and shortness of breath with exertion; Denies cough or hemoptysis Gastrointestinal Gastrointestinal: Reports nausea and other Details: Weight loss ; Denies abdominal pain, constipation, diarrhea, hematemesis, hematochezia, melena or vomiting Genitourinary Genitourinary: Denies dysuria, hematuria, urinary frequency, urinary hesitancy, urinary incontinence or urinary urgency Musculoskeletal Musculoskeletal: Denies back pain, joint pain, joint stiffness, joint swelling, myalgias or neck pain Neurologic Neurologic: Denies abnormal gait, abnormal speech, dizziness, focal weakness, headache(s), loss of vision, numbness, other visual disturbances, paresthesias, syncope or tingling Psychiatric Psychiatric: Denies anxiety, cognitive impairment, depression, irritability, mood swings or suicidal ideation Endocrine Endocrinology: Denies change in body appearance, cold intolerance, excessive sweating, heat intolerance, polydipsia or polyuria Hematologic/Lymphatic Hematologic/Lymphatic: Denies none, anemia, easy bleeding, easy bruising or lymphadenopathy Allergic/Immunologic Allergic/Immunologic: Denies rhinitis, urticaria, eczemia or asthma Lab / Micro Data 04/06/24 08:24 18 08:24 Labs: Laboratory Results - last 24 hr 04/06/24 08:24: WBC 7.9, RBC 6.44 H, Hgb 19.3 H*, Hct 60.8 H, MCV 94.4 H, MCH 30.0, MCHC 31.7 L, RDW Std Deviation 53.8 H, RDW Coeff of Behzad 16.3 H, Plt Count 146 L, MPV 12.5 H, Immature Gran % (Auto) 0.500, Neut % (Auto) 77.7 H, Lymph % (Auto) 13.6 L, [place] % (Auto) 7.9, Eos % (Auto) 0.0, Baso % (Auto) 0.3, Absolute Neuts (auto) 6.2, Absolute Lymphs (auto) 1.08, Nucleated RBC % 0, Diff Path Review March, Retic Count 1.64 H, Immature Retic Fraction 14.60, Retic Hgb Equivalent 33.1, Sodium 134 L, Potassium 4.9, Chloride 101, Carbon Dioxide 22.0, Anion Gap 11, BUN 64 H, Creatinine 3.26 H, Estim Creat Clear Calc 26.11, Est GFR (MDRD) Af Amer 24 L, Est GFR (MDRD) Non-Af 20 L, BUN/Creatinine Ratio 19.6, Glucose 136 H, Calcium 10.0, Total Bilirubin 1.90 H, Direct Bilirubin 0.86 H 04/06/24 08:24: Direct Bilirubin 0.87 H, GGT 298 H, AST 245 H, ALT 201 H, Alkaline Phosphatase 249 H, Total Protein 6.9, Albumin 3.6, Globulin 3.3 04/06/24 11:30: PT 17.8 H, INR 1.5, APTT 45.4 H, D-Dimer Quant (PE/DVT) 3.48 H* Imaging Radiology Impression Chest/Abdomen CT 04/06/24 09:45 IMPRESSION: Moderate portal venous air, mild right upper and lower quadrant mesenteric venous gas, and long segment of proximal colonic wall thickening with surrounding inflammation concerning for ischemic colitis. Presence of mesenteric venous gas limits evaluation for mild free air. Cholelithiasis. Moderate cardiomegaly. Mild atelectasis and pulmonary emphysema. Presence of pulmonary emphysema on CT is an independent risk factor for lung cancer. Consider LDCT lung cancer screening in the future. Electronically Signed: Olya Barry MD at 11:04 EDT , ADDENDUM: 04/06/24 1130 IMPRESSION: Moderate portal venous air, mild right upper and lower quadrant mesenteric venous gas, and long segment of proximal colonic wall thickening with surrounding inflammation concerning for ischemic colitis. Presence of mesenteric venous gas limits evaluation for mild free air. Cholelithiasis. Moderate cardiomegaly. Mild atelectasis and pulmonary emphysema. Presence of pulmonary emphysema on CT is an independent risk factor for lung cancer. Consider LDCT lung cancer screening in the future. N.B. : The above Results were Read Back by Olya Barry MD to Sarah Rockwell RN, and understanding confirmed on 04/06/2024 11:23:36 (ET). Electronically Signed: Olya Barry MD at 11:04 EDT , Assessment & Plan Assessment/Plan (1) Ischemic bowel disease: (2) Cholestatic hepatitis: PLAN: Plan Long segment of colonic wall thickening within the splenic flexure in addition to several thickened loops of small bowel with extensive intrahepatic and extrahepatic portal venous gas. Findings are compatible with intestinal ischemia though evaluation the mesenteric vasculature is somewhat limited in the absence of intravenous contrast. No definite free air. Portal venous gas is easily associated with acute abdominal pain. He does have some bloating and discomfort but he does not describe it as pain. He usually does affect her elderly but the amount of gas does not correlate with the pathophysiology. ? Typically you see increased white blood cell count, lactate and LFTs which she also does have. Her certain cases may also accompany polycythemia and thrombocytopenia depending on the cause. He does not want anything done. I did offer him phlebotomy and possible anticoagulation as he is on antiplatelet therapy. This is likely secondary to polycythemia in the setting of a low flow state and the patient has a EF of 10%. He has a history of A-fib but he is not in A-fib at this time as that could be another etiology of his mesenteric ischemia. Continue to monitor vitals and patient is agreeable to conservative therapy only at this time. Charges/Coding Visit Charges Inpatient E&M: 68501 Subs Hosp L3
--- NOTE | 2024-04-06 18:20 | PCM.PN.HOSP ---
Reason for Visit Reason for Visit: Diagnoses Vascular disorder of intestine, unspecified (04/05/24) Other specified inflammatory liver diseases (04/05/24) Hemoptysis (04/05/24) Dyspnea, unspecified (04/05/24) Unspecified jaundice (04/05/24) Abnormal weight loss (04/05/24) Other specified abnormal findings of blood chemistry (04/05/24) Personal history of nicotine dependence (04/05/24) Subjective Subjective Patient was seen and examined today, his creatinine has increased from yesterday, he also had onset of bright red rectal bleeding today, CT of the abdomen and chest was ordered by oncology as part of their workup, there was noted to be moderate portal venous air and mesenteric venous gas, there was also noted to be moderate cardiomegaly with mild atelectasis and pulmonary emphysema. The abdominal findings are concerning for ischemic colitis. Gastroenterology saw the patient in consultation today, he is now on IV antibiotics and due to his increased creatinine I have elected to hold his Lasix at this time. I had a discussion with the patient, he states he is tired and he does not want to consider any surgery if necessary and he wants to be a DNR CC arrest without intubation. I had a brief conversation with his daughter who lives in [place] and let her know about his medical condition. Patient is currently on 2 L of oxygen via nasal cannula. Objective Data Objective Data Vital Signs: Vital Signs Temp Pulse Resp BP Pulse Ox O2 Del Method O2 Flow Rate 96.6 F L 70 16 98/79 97 Nasal Cannula 2 04/06/24 13:29 04/06/24 13:29 04/06/24 13:29 04/06/24 13:29 04/06/24 13:29 04/06/24 14:00 04/06/24 14:00 Oxygen Flow Rate (L/min) 2 Oxygen Delivery Method Nasal Cannula Weight: 102.5 kg Body Mass Index (BMI) 30.6 Intake & Output: Intake and Output for Last 24 Hours 04/04/24 04/05/24 04/06/24 23:59 23:59 23:59 Intake Total 1310 / 1310 250 / 250 Balance 1310 / 1310 250 / 250 Lab / Micro Data 04/06/24 08:24 04/06/24 08:24 Labs: Laboratory Results - last 24 hr 04/06/24 08:24: WBC 7.9, RBC 6.44 H, Hgb 19.3 H*, Hct 60.8 H, MCV 94.4 H, MCH 30.0, MCHC 31.7 L, RDW Std Deviation 53.8 H, RDW Coeff of Behzad 16.3 H, Plt Count 146 L, MPV 12.5 H, Immature Gran % (Auto) 0.500, Neut % (Auto) 77.7 H, Lymph % (Auto) 13.6 L, [place] % (Auto) 7.9, Eos % (Auto) 0.0, Baso % (Auto) 0.3, Absolute Neuts (auto) 6.2, Absolute Lymphs (auto) 1.08, Nucleated RBC % 0, Diff Path Review March, Retic Count 1.64 H, Immature Retic Fraction 14.60, Retic Hgb Equivalent 33.1, Sodium 134 L, Potassium 4.9, Chloride 101, Carbon Dioxide 22.0, Anion Gap 11, BUN 64 H, Creatinine 3.26 H, Estim Creat Clear Calc 26.11, Est GFR (MDRD) Af Amer 24 L, Est GFR (MDRD) Non-Af 20 L, BUN/Creatinine Ratio 19.6, Glucose 136 H, Calcium 10.0, Total Bilirubin 1.90 H, Direct Bilirubin 0.86 H 04/06/24 08:24: Direct Bilirubin 0.87 H, GGT 298 H, AST 245 H, ALT 201 H, Alkaline Phosphatase 249 H, Total Protein 6.9, Albumin 3.6, Globulin 3.3 04/06/24 11:30: PT 17.8 H, INR 1.5, APTT 45.4 H, D-Dimer Quant (PE/DVT) 3.48 H* Radiography Diagnostic Testing: Radiology Impression Chest/Abdomen CT 04/06/24 09:45 IMPRESSION: Moderate portal venous air, mild right upper and lower quadrant mesenteric venous gas, and long segment of proximal colonic wall thickening with surrounding inflammation concerning for ischemic colitis. Presence of mesenteric venous gas limits evaluation for mild free air. Cholelithiasis. Moderate cardiomegaly. Mild atelectasis and pulmonary emphysema. Presence of pulmonary emphysema on CT is an independent risk factor for lung cancer. Consider LDCT lung cancer screening in the future. Electronically Signed: Olya Barry MD at 11:04 EDT , ADDENDUM: 04/06/24 1130 IMPRESSION: Moderate portal venous air, mild right upper and lower quadrant mesenteric venous gas, and long segment of proximal colonic wall thickening with surrounding inflammation concerning for ischemic colitis. Presence of mesenteric venous gas limits evaluation for mild free air. Cholelithiasis. Moderate cardiomegaly. Mild atelectasis and pulmonary emphysema. Presence of pulmonary emphysema on CT is an independent risk factor for lung cancer. Consider LDCT lung cancer screening in the future. N.B. : The above Results were Read Back by Olya Barry MD to Sarah Rockwell RN, and understanding confirmed on 04/06/2024 11:23:36 (ET). Electronically Signed: Olya Barry MD at 11:04 EDT Reading Location ID and State: [facility] / [place] Tel , Service support , Physical Exam Const alert, oriented x3 and no apparent distress Constitutional Narrative: Patient appears unwell and older than stated age General Appearance: cooperative, well kempt and well developed Orientation / Consciousness: awake, oriented to person, oriented to place and oriented to time HEENT normocephalic, head/scalp atraumatic and moist oral mucous membranes Eyes PERRL, EOMs intact bilaterally and conjunctivae normal Neck supple, no JVD, thyroid normal and no carotid bruits General: trachea midline Resp normal respiratory effort and no retractions Resp Narrative: Inspiratory rales are noted over the bases Auscultation: rales; Negative for rhonchi or wheezes Cardio regular rate, regular rhythm, S1 normal heart sound, S2 normal heart sound, no murmurs, no rub and no gallops GI normal to inspection, nondistended, normoactive bowel sounds, non-tender and non-distended GI Narrative: There is some mild right upper quadrant abdominal tenderness to palpation, bowel sounds are present in all 4 quadrants Skin no rashes or lesions noted General Skin Exam: no breakdown Neuro oriented x3, CN's II-XII intact bilaterally, no focal motor deficits and no sensory deficits noted Sensorium / Orientation: awake and alert Speech: speech normal Psych affect normal Assessment & Plan Assessment/Plan (1) Ischemic bowel disease: (2) Dyspnea on exertion: PLAN: Plan 1. Acute on chronic systolic congestive heart failure-because of the patient's increased creatinine I have elected to stop his diuretics at this time, I will not administer any IV fluids at this time, labs will be repeated tomorrow #2 hypoxia secondary to #1-patient's pulse ox will be monitored #3 ischemic cardiomyopathy-complicates care, management, recovery, and prognosis, patient's ejection fraction is 10 to 15% #4 unexplained weight loss-possible cardiac cachexia-versus ischemic bowel disease #5 polycythemia-this appears to be chronic according to the patient #6 essential hypertension-patient's blood pressure medications were recently reduced due to his hypotension, patient will remain on a beta-ky at this time #7 hypothyroidism-patient is on Synthroid, patient's TSH was 10.8 on 04/04/2024, patient's T3 is slightly low but his T4 level is normal. #8 hyperlipidemia-patient is on atorvastatin #9 coronary artery disease-patient remains on aspirin and Plavix #10 cholestatic hepatitis-labs will be followed #11 ischemic bowel-patient is now on Zosyn Total clinical time spent by myself addressing the patient's medical issues, reviewing all of his data, and collaborating with patient's care team: 35 minutes Charges/Coding Visit Charges Inpatient E&M: 53202 Subs Hosp L2
--- NOTE | 2024-04-06 21:06 | PN.HOSP_ITS ---
Hospitalist Note Called by nursing as patient was having drop in his blood pressure and 1 reading was 56/33. Went and saw the patient and he is awake and alert. Does not appear to be in any distress. States he is having abdominal pain. Went over the findings of the patient's images and told him that the concern is that he may have mesenteric ischemia and without surgery his chance of survival may may be very low. I told him that it is unclear if his condition will continue to deteriorate. I told him that he is at a [facility] where we can be more aggr essive. He does express he does not want surgery but I did talk to him about central venous access, pressors if indicated. Told that the other option would essentially be hospice. Do not given his low blood pressure, would hold off on any pain medications as it may drop that. But I told him if he does continue to get worse, then I would recommend hospice for him because with his cardiomyopathy, his chance of survival would probably be very low if this is indeed mesenteric
[2024-04-06] MEDS: Atorvastatin Calcium 10 MG Tablet PO (21:21)
[2024-04-06] MEDS: Heparin Injection (Vial) 5,000 UNIT/ML VIAL 5000 UNIT SC (21:21)
[2024-04-07] VITALS (9 sets, daily range): BP systolic 82–111; BP diastolic 58–99; PULSE 69–75; RESP 14–20; TEMP 35.6–36; O2SAT 95–100; BMI 31.1
[2024-04-07] MEDS: Piperacil/Tazobactam 3.375 GM in 0.9% Normal Saline (50mL MB+) 50 ML IV ×3 (05:40→21:11)
[2024-04-07 06:24] LABS: Absolute Lymphocyte Count 0.65 X10^3/uL (0.83-4.51); Absolute Neutrophil Count 12.6 X10^3/uL (2.0-7.7); Basophil# 0.05 X10^3/uL; Basophil% 0.4 % (0-1); Eosinophils% 0.7 % (0-5); Hemoglobin 19.3 g/dL (13.0-16.5); Lymphocyte # 0.65 X10^3/ul (0.83-4.51); Lymphocyte % 4.6 % (19-41); Mean Corp Hgb Conc 31.6 g/dL (32-36); Mean Corpuscular Hgb 29.5 pg (27.0-32.0); Mean Corpuscular Volume 93.3 fL (80-94); Mean Platelet Vol. 12.4 fl (6.2-12.0); Monocyte# 0.72 X10^3/uL; NRBC Flagged by Analyzer 0.1 % (0-5); Neutrophil # 12.62 X10^3/uL (2.7-7.7); Neutrophil % 88.5 % (47-70); Platelet Count 116 K/mm3 (150-450); RBC Distribution Width CV 17.1 % (11.6-14.6); RBC Distribution Width SD 53.6 fl (35.1-43.9); Red Blood Count 6.54 M/mm3 (4.6-6.2); White Blood Count 14.3 K/mm3 (4.4-11.0)
[2024-04-07 07:46] LABS: AST(SGOT) 182 U/L (15-37); Alanine Aminotransfer ALT/SGPT 212 U/L (16-61); Albumin, Serum 3.2 g/dL (3.2-5.0); Alkaline Phosphatase 177 U/L (45-117); Anion Gap 11 (5-15); BUN 72 mg/dL (7-18); BUN/Creat Ratio 16.9 RATIO (10-20); Bilirubin, Direct 1.03 mg/dL (0.00-0.30); Chloride 98 mmol/L (98-107); Creatinine, Serum 4.25 mg/dL (0.70-1.30); EST Glomerular Filtration Rate 15 mL/min (>60); Est Glom Filt Rate - Afr Amer 18 mL/min (>60); Estimated Creatinine Clearance 20.18 ml/min; Globulin 3.7 g/dL (2.2-4.2); Glucose 74 mg/dL (74-106); Potassium 5.4 mmol/L (3.5-5.1); Protein, Total 6.9 g/dL (6.4-8.2); Sodium Level 130 mmol/L (136-145)
--- NOTE | 2024-04-07 08:10 | RAD_ITS ---
HISTORY: hypoxia. TECHNIQUE: XR Chest 2 Views. COMPARISON: 04/05/2024. FINDINGS: LINES/TUBES: Biventricular pacemaker noted. Residual contrast in the upper abdominal bowel. CARDIOMEDIASTINAL BORDERS: Stable enlargement of the cardiac silhouette. LUNGS: Mild bibasilar atelectasis, decreased on the right. PLEURA: No pleural effusion or pneumothorax. RAD/Chest PA and Lateral IMPRESSION: Mild bibasilar atelectasis, decreased on the right. Electronically Signed: Olya Barry MD at 8:56 EDT ,
[2024-04-07] MEDS: 0.9% Saline Lock 10 ML Syringe IV (09:38)
[2024-04-07] MEDS: Allopurinol 300 MG Tablet PO (09:38)
[2024-04-07] MEDS: Aspirin E.C. 81 MG Tablet PO (09:38)
[2024-04-07] MEDS: Heparin Injection (Vial) 5,000 UNIT/ML VIAL 5000 UNIT SC ×2 (09:38→21:11)
[2024-04-07] MEDS: Clopidogrel Bisulfate 75 MG Tablet PO (09:39)
[2024-04-07] MEDS: Lactated Ringers 1,000 ML 75 ML IV ×2 (09:59→17:25)
[2024-04-07] MEDS: Amiodarone 200 MG Tablet PO (10:48)
[2024-04-07] MEDS: Midodrine HCl 5 MG Tablet 10 MG PO ×2 (12:40→17:25)
--- NOTE | 2024-04-07 13:54 | PN.HOSP_ITS ---
Reason for Visit Reason for Visit: Diagnoses Vascular disorder of intestine, unspecified (04/05/24) Other specified inflammatory liver diseases (04/05/24) Hemoptysis (04/05/24) Dyspnea, unspecified (04/05/24) Unspecified jaundice (04/05/24) Abnormal weight loss (04/05/24) Other specified abnormal findings of blood chemistry (04/05/24) Personal history of nicotine dependence (04/05/24) Subjective Subjective Patient was seen and examined today, respiratory status is stable on 2 L of oxygen. Patient's creatinine has deteriorated from yesterday, I decided to place the patient back on fluids. Patient's hemoglobin has not dropped significantly, he still has some right upper quadrant abdominal pain. Patient's blood pressure has been low today-I elected to place him on midodrine Objective Data Objective Data Vital Signs: Vital Signs Temp Pulse Resp BP Pulse Ox O2 Del Method O2 Flow Rate 96.8 F L 69 20 H 82/68 L 98 Nasal Cannula 2 04/07/24 09:36 04/07/24 09:36 04/07/24 09:36 04/07/24 09:36 04/07/24 09:36 04/07/24 09:36 04/07/24 09:36 Oxygen Flow Rate (L/min) 2 Oxygen Delivery Method Nasal Cannula Weight: 104.1 kg Body Mass Index (BMI) 31.1 Intake & Output: Intake and Output for Last 24 Hours 04/05/24 04/06/24 04/07/24 23:59 23:59 23:59 Intake Total 1310 / 1310 250 / 250 1069.58 / 1069.58 Balance 1310 / 1310 250 / 250 1069.58 / 1069.58 Lab / Micro Data 04/07/24 05:55 04/07/24 05:55 Labs: Laboratory Results - last 24 hr 04/07/24 05:55: WBC 14.3 H, RBC 6.54 H, Hgb 19.3 H*, Hct 61.0 H, MCV 93.3, MCH 29.5, MCHC 31.6 L, RDW Std Deviation 53.6 H, RDW Coeff of Behzad 17.1 H, Plt Count 116 L, MPV 12.4 H, Immature Gran % (Auto) 0.800, Neut % (Auto) 88.5 H, Lymph % (Auto) 4.6 L, [place] % (Auto) 5.0, Eos % (Auto) 0.7, Baso % (Auto) 0.4, Absolute Neuts (auto) 12.6 H, Absolute Lymphs (auto) 0.65 L, Nucleated RBC % 0.1, Sodium 130 L, Potassium 5.4 H, Chloride 98, Carbon Dioxide 21.0, Anion Gap 11, BUN 72 H , Creatinine 4.25 H, Estim Creat Clear Calc 20.18, Est GFR (MDRD) Af Amer 18 L, Est GFR (MDRD) Non-Af 15 L, BUN/Creatinine Ratio 16.9, Glucose 74, Calcium 10.0, Total Bilirubin 2.70 H, Direct Bilirubin 1.03 H, AST 182 H, ALT 212 H, Alkaline Phosphatase 177 H, Total Protein 6.9, Albumin 3.2, Globulin 3.7 Radiography Diagnostic Testing: Radiology Impression Chest X-Ray 04/07/24 08:10 IMPRESSION: Mild bibasilar atelectasis, decreased on the right. Electronically Signed: Olya Barry MD at 8:56 EDT Reading Location ID and State: [facility] / ID Tel , Service support , Physical Exam Narrative alert, oriented x3 and no apparent distress Constitutional Narrative: Patient appears unwell and older than stated age General Appearance: cooperative, well kempt and well developed Orientation / Consciousness: awake, oriented to person, oriented to place and oriented to time HEENT normocephalic, head/scalp atraumatic and moist oral mucous membranes Eyes PERRL, EOMs intact bilaterally and conjunctivae normal Neck supple, no JVD, thyroid normal and no carotid bruits General: trachea midline Resp normal respiratory effort and no retractions Resp Narrative: Inspiratory rales are noted over the bases Auscultation: rales; Negative for rhonchi or wheezes Cardio regular rate, regular rhythm, S1 normal heart sound, S2 normal heart sound, no murmurs, no rub and no gallops GI normal to inspection, nondistended, normoactive bowel sounds GI Narrative: There is some mild right upper quadrant abdominal tenderness to palpation, bowel sounds are present in all 4 quadrants Skin no rashes or lesions noted General Skin Exam: no breakdown Neuro oriented x3, CN's II-XII intact bilaterally, no focal motor deficits and no sensory deficits noted Sensorium / Orientation: awake and alert Speech: speech normal Psych Patient's affect is depressed Assessment & Plan Assessment/Plan (1) Ischemic bowel disease: (2) Dyspnea on exertion: PLAN: Plan 1. Acute on chronic systolic congestive heart failure-because of the patient's increased creatinine I have elected to stop his diuretics at this time, I will not administer any IV fluids at this time, labs will be repeated tomorrow #2 hypoxia secondary to #1-patient's pulse ox will be monitored #3 ischemic vjelswceauudsk-xuafxk-rtocwtsriuj care, management, recovery, and prognosis, patient's ejection fraction is 10 to 15% #4 unexplained weight loss-possible cardiac cachexia-versus ischemic bowel disease #5 polycythemia-this appears to be chronic according to the patient #6 essential hypertension-patient's blood pressure medications were recently reduced due to his hypotension, patient will remain on a beta-ky at this time #7 hypothyroidism-patient is on Synthroid, patient's TSH was 10.8 on 04/04/2024, patient's T3 is slightly low but his T4 level is normal. 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
[2024-04-07] MEDS: Atorvastatin Calcium 10 MG Tablet PO (21:11)
[2024-04-08 04:00] VITALS: BP 85/65; PULSE 69; RESP 18; TEMP 35.7; O2SAT 98
[2024-04-08] MEDS: Piperacil/Tazobactam 3.375 GM in 0.9% Normal Saline (50mL MB+) 50 ML IV (05:19)
[2024-04-08 05:59] LABS: Absolute Lymphocyte Count 0.48 X10^3/uL (0.83-4.51); Absolute Neutrophil Count 10.1 X10^3/uL (2.0-7.7); Basophil# 0.11 X10^3/uL; Basophil% 0.9 % (0-1); Eosinophil# 0.17 X10^3/uL; Eosinophils% 1.5 % (0-5); Hemoglobin 18.6 g/dL (13.0-16.5); Lymphocyte # 0.48 X10^3/ul (0.83-4.51); Lymphocyte % 4.1 % (19-41); Mean Corpuscular Hgb 29.6 pg (27.0-32.0); Mean Corpuscular Volume 92.7 fL (80-94); Mean Platelet Vol. 12.8 fl (6.2-12.0); Monocyte# 0.62 X10^3/uL; Monocyte% 5.3 % (0-10); NRBC Flagged by Analyzer 0.3 % (0-5); Neutrophil # 10.14 X10^3/uL (2.7-7.7); Neutrophil % 87.1 % (47-70); POSITIVE DIFFERENTIAL YES; POSITIVE MORPHOLOGY YES; Platelet Count 106 K/mm3 (150-450); RBC Distribution Width CV 16.8 % (11.6-14.6); Red Blood Count 6.28 M/mm3 (4.6-6.2); White Blood Count 11.7 K/mm3 (4.4-11.0)
[2024-04-08 06:00] VITALS: BMI 32.1
[2024-04-08 06:31] LABS: Differential Indicated SCAN CRITERIA MET; Hematocrit 58.2 % (40-54)
[2024-04-08 07:17] LABS: AST(SGOT) 330 U/L (15-37); Alanine Aminotransfer ALT/SGPT 332 U/L (16-61); Albumin, Serum 3.1 g/dL (3.2-5.0); Alkaline Phosphatase 166 U/L (45-117); Anion Gap 18 (5-15); BUN 82 mg/dL (7-18); BUN/Creat Ratio 17.4 RATIO (10-20); Bilirubin, Direct 1.53 mg/dL (0.00-0.30); Calcium,Total 9.4 mg/dL (8.5-10.1); Chloride 96 mmol/L (98-107); Creatinine, Serum 4.72 mg/dL (0.70-1.30); EST Glomerular Filtration Rate 13 mL/min (>60); Est Glom Filt Rate - Afr Amer 16 mL/min (>60); Estimated Creatinine Clearance 18.43 ml/min; Globulin 3.4 g/dL (2.2-4.2); Glucose 58 mg/dL (74-106); Potassium 6.2 mmol/L (3.5-5.1); Protein, Total 6.5 g/dL (6.4-8.2); Sodium Level 130 mmol/L (136-145)
[2024-04-08 07:30] VITALS: O2SAT 96
[2024-04-08] MEDS: Allopurinol 300 MG Tablet PO (07:52)
[2024-04-08] MEDS: Midodrine HCl 5 MG Tablet 10 MG PO ×2 (07:52→11:02)
[2024-04-08] MEDS: Aspirin E.C. 81 MG Tablet PO (07:53)
[2024-04-08] MEDS: Amiodarone 200 MG Tablet PO (07:53)
[2024-04-08] MEDS: Clopidogrel Bisulfate 75 MG Tablet PO (07:54)
[2024-04-08] MEDS: Heparin Injection (Vial) 5,000 UNIT/ML VIAL 5000 UNIT SC (07:54)
[2024-04-08 07:55] VITALS: BP 79/59; PULSE 72
[2024-04-08 08:00] VITALS: BP 79/59; PULSE 81; RESP 16; TEMP 36.5; O2SAT 99
[2024-04-08] MEDS: Sodium Polystyrene Sulfonate 15 GM/60 ML UDC PO (11:02)
--- NOTE | 2024-04-08 12:54 | CASEMGMT ---
Addendum entered by Lisa Baird 04/08/24 15:46: ANDREW spoke with Stacy from [facility]. Papers have been signed by pt's dgt. Stacy spoke with pt's nurse and pt has been accepted to the [facility]. Stacy to set up transportation for today. Nurse and physician notified. DANIEL Jha Original Note: Social Work Physician made referral for hospice and to be considered for [facility]. ANDERW spoke with pt's dgt Zehra who confirms agreement with referral to [facility]. Referral made to Sanjana at [facility] and clinicals faxed. Pt dgt lives out of state and hospice notified and will be calling her. ANDREW requested pt be assessed for the [facility]. Per Zehra, pt does have a son that lives in the [facility] [phone] DANIEL Jha
[2024-04-08 13:26] LABS: Pathologist Review Reviewed
[2024-04-08 13:29] LABS: Pathologist Review Reviewed
[2024-04-08 14:26] VITALS: BP 81/44; PULSE 77; RESP 18; TEMP 36.5; O2SAT 97
--- NOTE | 2024-04-08 15:51 | DS.PCM_ITS ---
Providers Date of Admission: 04/05/24 Date of Discharge: 04/08/24 Primary Care Physician: Dr. Alexx David MD Consultations 04/05/24 08:06 Consult: Oncology/Hematology Routine Consulting Provider: Solomon Henderson Reason for Consult: polycythemia EMERGENT Consult: No Notified: Yes Date Notified: 04/05/24 Time Notified: 07:51 Method of Notification: Verbal 04/06/24 11:33 Consult: Gastroenterology Routine Consulting Provider: [facility] Reason for Consult: ischemic colitis EMERGENT Consult: No Notified: Yes Date Notified: 04/06/24 Time Notified: 11:33 Method of Notification: Verbal 04/08/24 12:01 Consult: Hospice / Palliative Care Routine Consulting Provider: [facility] Reason for Consult: end stage heart disease EMERGENT Consult: No Notified: Yes Date Notified: 04/08/24 Time Notified: 12:01 Method of Notification: Answering Service Reason For Visit: CHF Diagnosis Discharge Diagnosis (1) Polycythemia: Status: Acute Code(s): D75.1 - Secondary polycythemia (2) D-dimer, elevated: Status: Acute Code(s): R79.89 - Other specified abnormal findings of blood chemistry (3) Weight loss, unintentional: Status: Acute Code(s): R63.4 - Abnormal weight loss (4) Total bilirubin, elevated: Status: Acute Code(s): R17 - Unspecified jaundice Medications at Discharge Home Medications nitroglycerin 0.4 mg sublingual tablet 0.4 mg sublingual Q5-15M PRN chest pain #25 tabs 06/01/23 amiodarone 200 mg tablet 200 mg PO DAILY #90 tabs 06/26/23 Hospital Course Operations None Procedures 2-D Echocardiogram, EKG and - (CT Chest and Abdomen, CXR) Summary of Care Provided Minutes Spent on Discharge: 38 Hospital Course: Mr Pickett is a 68 yo WM who presented to the ED at [facility] on 04/05/2024 with shortness of breath. Patient has a known history of ischemic cardiomyopathy with an ICD in place and his last echocardiogram prior to admission showed an EF of 25%. The patient reported for about 3 months he had been having worsening shortness of breath and reported that on the day of presentation he was walking around his home and became very short of breath and therefore came in for evaluation. He denied any fever or chills and reported for at least the last 3 months he is lost approximately 35 pounds due to the fact that he does not want to eat and when he tries to eat he feels like he might vomit. Vital signs on presentation showed a temperature of 97.8, heart rate 71, respiratory was 18, blood pressure was 103/85 and oxygen saturation was 97% on room air. His CBC showed a normal white count with an unremarkable differential however he did have a significant hemoglobin elevation with a hemoglobin of 20 which on review appears to be close to his baseline and thrombocytopenia with a platelet count of 149,000. Coags were abnormal with an INR of 1.5, PTT of 17.8 and a PTT of 45.5. A D-dimer was obtained and found to be 3.48. His chemistry panel showed hyponatremia with a sodium of 135, BUN of 55 and a serum creatinine of 2.06. His troponin was normal at 26 with a repeat of 21 and his BNP was markedly elevated at 1513.3. He was admitted to the PCU where IV Lasix was instituted and an echocardiogram was obtained. Echocardiogram on 04/05/2024 showed an EF of 10 to 15% with a severely dilated LV, severe global hypokinesis of the LV and stage I diastolic dysfunction as well as moderate left atrial enlargement and mild right atrial enlargement with severe 3+ mitral valve insufficiency and mild aortic valve insufficiency. Oncology was also consulted for his elevated hemoglobin and workup was ordered however it was felt that this was likely related to chronic hypoxia from his heart failure. With his diuresis his renal function continued to deteriorate and his transaminases and bilirubin trended up. His blood pressure also trended down and he developed acute rectal bleeding which was felt to be related to ischemic colitis. Extensive conversation was had with the patient and he was clear that he did not want any aggressive interventional studies to be performed with regards to his GI bleeding however his abdominal pain persisted and he had ongoing rectal bleeding. Despite discontinuing IV Lasix due to worsening creatinine and giving a small fluid bolus his creatinine continue to worsen he developed an acidosis along with worsening uremia and confusion. I had an extensive conversation with his daughter with regards to recommendations for ongoing care including hospice. His daughter indicated that she was not aware of how severely ill he was with regards to his heart until he was admitted and she was contacted by the initial attending. He had never really had any conversations with her or her brother about his cardiac issues. Given the above she was amenable to having hospice evaluate the patient and they did so on 04/08/2024 and deemed him appropriate for the inpatient hospice unit to where he was discharged on 04/08/2024. Discharge diagnoses: Acute on chronic decompensated systolic and diastolic heart failure Severe mitral valve regurgitation KULDIP on CKD Elevated anion gap metabolic acidosis Uremia Toxic/metabolic encephalopathy Rectal bleeding secondary to suspected ischemic colitis Erythrocytosis Hyponatremia Severe malnutrition Hyperbilirubinemia Transaminitis Coagulopathy secondary to passive congestion of the liver and heart failure Hyperkalemia History of ischemic cardiomyopathy Chronic LBBB Hyperlipidemia COPD CAD History of atrial fibrillation Obesity Physical Exam Const alert and no apparent distress; Negative for oriented x3, average body habitus, no limitations, healthy appearing or well nourished Constitutional Narrative: Obese, older, white male, sitting up in bed awake but confused, oriented only to himself, appears ill but not toxic General Appearance: cooperative, comfortable, well developed and lethargic Orientation / Consciousness: awake, oriented to person and confused; Negative for oriented to place or oriented to time Exam Limitations: altered mental status Nutritional Appearance: obese HEENT normocephalic, head/scalp atraumatic and moist oral mucous membranes HEENT Narrative: Moderate hearing loss, Mallampati 3, no thrush Eyes PERRL and EOMs intact bilaterally; Negative for conjunctivae normal Eyes Narrative: No scleral icterus Neck no lymphadenopathy and supple Neck Narrative: Positive JVD, trachea midline, no thyroid enlargement noted Resp normal respiratory effort, No no retractions, No no use of accessory muscles and No clear to auscultation bilaterally Resp Narrative: Decreased diffusely with crackles at bases bilaterally, no significant tachypnea or accessory muscle use at this time Auscultation: crackles; Negative for rhonchi or wheezes Cardio regular rate, regular rhythm, S1 normal heart sound, S2 normal heart sound, no murmurs, no rub, no gallops and no clicks GI soft to palpation GI Narrative: Mild to moderate diffuse tenderness, bowel sounds are mildly hypoactive, abdomen is nondistended Extremity Extremity Narrative: 1+ bilateral lower extremity edema, trace bilateral upper extremity edema, no cyanosis or clubbing, no significant mottling at this time Skin No no rashes or lesions noted, No no wounds, No skin turgor normal and No no jaundice Neuro moves all extremities and no focal motor deficits Neuro Narrative: Severe generalized weakness noted, speech is clear but delayed response times are noted Sensorium / Orientation: awake, alert and oriented to person; Negative for oriented to place or oriented to time Psych Psych Narrative: Affect is flat and mood seems somewhat depressed however patient is confused Medical Records Data Medical Nutrition Assessment Dietitian: Malnutrition Criteria Met Start: 04/05/24 14:29 Freq: Status: Active Protocol: Document 04/08/24 13:02 RMA (Rec: 04/08/24 13:02 RMA [id number]) Nutrition Malnutrition Evidence of Malnutrition Exists Yes Malnutrition (severe): Chronic Evidenced By Suboptimal Energy Intake ( Severe),Weight Loss (Severe) Clinical Problem Chronic Disease or Condition Related Malnutrition Etiology related to suboptimal appetite , altered GI function and acute on chronic disease Signs/Symptoms as evidenced by 11.6-13.3% weight loss in 3 months and PO intakes <75% of estimated nutrition needs for 3 months. Status Active Problem Recommendation Dietitian Recommendations/Changes Will adjust diet to sodium and potassium restricted. Will d/c 120mL EPHP TID with medpass due to pt refusal. Will add 120mL ensure clear w/ meals TID for tolerance. Weight / BMI Weight Weight: 107.3 kg Body Mass Index (BMI) 32.1 ABG / Lab / Microbiology Data 04/08/24 05:15 04/08/24 05:15 Laboratory: Laboratory Results - last 24 hr 04/06/24 08:24: Diff Path Review Reviewed 04/07/24 05:55: Diff Path Review Reviewed 04/08/24 05:15: WBC 11.7 H, RBC 6.28 H, Hgb 18.6 H*, Hct 58.2 H, MCV 92.7, MCH 29.6, MCHC 32.0, RDW Std Deviation 52.0 H, RDW Coeff of Behzad 16.8 H, Plt Count 106 L, MPV 12.8 H, Immature Gran % (Auto) 1.100 H, Neut % (Auto) 87.1 H, Lymph % (Auto) 4.1 L, [place] % (Auto) 5.3, Eos % (Auto) 1.5, Baso % (Auto) 0.9, Absolute Neuts (auto) 10.1 H, Absolute Lymphs (auto) 0.48 L, Nucleated RBC % 0.3, Differential Comment , Diff Path Review May foll, Sodium 130 L, Potassium 6.2 H* , Chloride 96 L, Carbon Dioxide 16.0 L, Anion Gap 18 H, BUN 82 H, Creatinine 4.72 H, Estim Creat Clear Calc 18.43, Est GFR (MDRD) Af Amer 16 L, Est GFR (MDRD) Non-Af 13 L, BUN/Creatinine Ratio 17.4, Glucose 58 L, Calcium 9.4, Total Bilirubin 2.90 H, Direct Bilirubin 1.53 H, AST 330 H, ALT 332 H, Alkaline Phosphatase 166 H, Total Protein 6.5, Albumin 3.1 L, Globulin 3.4 D/C Instructions Discharge Diet: No restrictions Meaningful Use Info Meaningful Use Meaningful Use Diagnoses (Choose all that apply): CHF CHF DUONG/ARB ordered at discharge?: No Reason DUONG/ARB not ordered?: Worsening renal disease Documented LVEF (%): 10 Ischemic Stroke Statin Dosing Therapy Reference: STATIN DOSE THERAPY REFERENCE: * Patients > 75 years receive moderate or high dose statin therapy. * Patients 75 years or YOUNGER should receive HIGH intensity statin dose unless contraindicated. You will be required to document reason for non-treatment if statin daily dose does not meet guidelines. HIGH DOSE STATIN THERAPY DAILY Atorvastatin > than or = to 40 mg Rosuvastatin > than or = to 20 mg Amlodipine + Atorvastatin > than or = to 2.5/40 mg Ezetimibe + Simvastatin 10/80 mg Simvastatin 80mg Discharge Plan Admission Admit Date/Time: 04/05/24 07:25 Primary Reason for Your Visit: Shortness of breath Attending Provider: Joellen Lewis Primary Care Provider: Alexx David Consulting Providers: Solomon Henderson; Ector Perea; Severo Flores; Marlena Hopper; Candace Cartagena; Ana Gill NP Discharge Orders/Prescriptions Prescriptions: Continued nitroglycerin 0.4 mg tablet, sublingual 0.4 mg SL Q5-15M PRN (Reason: chest pain) Qty: 25 5RF Rx Instructions: take one tablet sublingual for chest pain may repeat do not exceed 3 doses per episode amiodarone 200 mg tablet 200 mg PO DAILY Qty: 90 3RF Discontinued allopurinol 300 mg tablet 300 mg PO DAILY spironolactone 25 mg tablet 12.5 mg PO DAILY Qty: 45 3RF atorvastatin 10 mg tablet 10 mg PO QHS Patient Comments: TAKE 1 TABLET BY MOUTH EVERY DAY aspirin 81 MG tablet,delayed release (DR/EC) 81 mg PO DAILY metoprolol succinate 50 mg tablet extended release 24 hr 50 mg PO DAILY Qty: 90 3RF clopidogrel 75 mg tablet See Rx Instructions .ROUTE .COMPLEX Qty: 90 3RF Dose Instruction: TAKE 1 TABLET BY MOUTH EVERY DAY Rx Instructions: TAKE 1 TABLET BY MOUTH EVERY DAY Referrals / Follow Up: Alexx David MD [Primary Care Provider] - Disposition Disposition (needs filled in before D/C Order can be placed): Hospice in Medical Facility Charges/Coding Visit Charges Inpatient E&M: 31174 Disch Hosp >30min
[2024-04-09 10:37] LABS: Pathologist Review Reviewed
== END 2024-04-08 16:59 | disposition hospice, inpatient (51) | DRG 291 ==
LOC: ED 07:17 → PCU 07:58
PROVIDERS: Nurse Practitioner Family; Admitting Provider Internal Medicine; Emergency Provider Emergency Medicine; PCP Family Medicine; Visit Provider Internal Medicine
DX: I13.0 Hypertensive heart and chronic kidney disease with heart failure and stage 1 through stage 4 chronic kidney disease, or unspecified chronic kidney disease (principal); G92.8 Other toxic encephalopathy; E43 Unspecified severe protein-calorie malnutrition; I50.43 Acute on chronic combined systolic (congestive) and diastolic (congestive) heart failure; K55.9 Vascular disorder of intestine, unspecified; E87.20 Acidosis, unspecified; E87.1 Hypo-osmolality and hyponatremia; N17.9 Acute kidney failure, unspecified; R04.2 Hemoptysis; D69.6 Thrombocytopenia, unspecified; J43.9 Emphysema, unspecified; I50.84 End stage heart failure; E03.9 Hypothyroidism, unspecified; N18.9 Chronic kidney disease, unspecified; K76.1 Chronic passive congestion of liver; I08.0 Rheumatic disorders of both mitral and aortic valves; I25.5 Ischemic cardiomyopathy; I25.10 Atherosclerotic heart disease of native coronary artery without angina pectoris; E78.5 Hyperlipidemia, unspecified; D75.1 Secondary polycythemia; K75.89 Other specified inflammatory liver diseases; I95.9 Hypotension, unspecified; E66.9 Obesity, unspecified; R09.02 Hypoxemia; Z66 Do not resuscitate; Z68.30 Body mass index [BMI] 30.0-30.9, adult; Z95.5 Presence of coronary angioplasty implant and graft; Z79.82 Long term (current) use of aspirin; Z79.02 Long term (current) use of antithrombotics/antiplatelets; Z79.899 Other long term (current) drug therapy; Z87.891 Personal history of nicotine dependence; Z95.810 Presence of automatic (implantable) cardiac defibrillator
CPT/HCPCS: 36415; 71045; 71046; 71250; 74150; 74246; 80048; 80053; 80061; 80076; 82248; 82977; 83036; 83735; 83880; 84436; 84439; 84443; 84480; 84484; 85025; 85045; 85379; 85610; 85730; 93005; 93306; 97162; 97166; 97530; 97535; 97802; 97803; 99285; J7030; J7120; Q9957; A4216; C8929; J1940; J2405